=== PATIENT | female | born 1965 | race Caucasian/White ===

== ENCOUNTER 2016-08-22 18:38 | Emergency (ER) | payer MEDICAID ==
[2016-08-22] MEDS ORDERED: ONDANSETRON ODT 4 MG TABLET TL STA (20:47)
[2016-08-22] MEDS ORDERED: ONDANSETRON ODT 4 MG TABLET ONE (20:57)
[2016-08-22] MEDS ORDERED: CEPHALEXIN 250 MG CAPSULE PO STA (21:44)
[2016-08-22] MEDS ORDERED: ONDANSETRON ODT 4 MG Prepack 2 TL PRN (21:44)
[2016-08-22] MEDS ORDERED: FLUCONAZOLE 100 MG TABLET PO STA (21:44)
[2016-08-22] MEDS ORDERED: ONDANSETRON ODT 4 MG Prepack 2 TL ONE (22:01)
[2016-08-22] MEDS ORDERED: SULFAMETH/TRIMETH DS 800/160 MG TABLET PO STA (22:04)
[2016-08-22] MEDS ORDERED: SULFAMETH/TRIMETH DS 800/160 MG TABLET PO ONE (22:09)
== END 2016-08-22 22:10 | disposition home or self-care (01) ==
DX: B37.3 Candidiasis of vulva and vagina (principal); T50.905A Adverse effect of unspecified drugs, medicaments and biological substances, initial encounter; J06.9 Acute upper respiratory infection, unspecified; N39.0 Urinary tract infection, site not specified; S30.814A Abrasion of vagina and vulva, initial encounter; X58.XXXA Exposure to other specified factors, initial encounter; I10 Essential (primary) hypertension; E11.9 Type 2 diabetes mellitus without complications; Z79.84 Long term (current) use of oral hypoglycemic drugs; E03.9 Hypothyroidism, unspecified; K21.9 Gastro-esophageal reflux disease without esophagitis; M19.90 Unspecified osteoarthritis, unspecified site; F17.200 Nicotine dependence, unspecified, uncomplicated
CPT/HCPCS: 81001; 87210; 87491; 87529; 87591; 99283; A9270; Q0162

== ENCOUNTER 2016-10-14 03:00 | Emergency (ER) | payer MEDICAID ==
[2016-10-14] MEDS ORDERED: NEOMYCIN/POLYMYX/HC OTIC DROPS RIGHTEAR STA (03:56)
[2016-10-14] MEDS ORDERED: NEOMYCIN/POLYMYX/HC OTIC DROPS ONE (04:02)
[2016-10-14] MEDS ORDERED: SODIUM CHLORIDE 0.9% 1,000 ML IV ONE ×3 (04:09→06:50)
[2016-10-14 04:55] LABS: BILIRUBIN,URINE NEGATIVE (NEGATIVE)
[2016-10-14 04:56] LABS: UA CHARGE (STRIP ONLY) YES; UR CULTURE IF IND NOT INDICATED
[2016-10-14 04:57] LABS: BASOPHILS # (AUTO) 0.1 10^3/uL (0.0-0.1); BASOPHILS % (AUTO) 0.9 %; EOSINOPHILS # (AUTO) 0.1 10^3/uL (0.0-0.7); EOSINOPHILS % (AUTO) 0.9 %; HCT - HEMATOCRIT 47.6 % (37.0-47.0); HGB - HEMOGLOBIN 15.7 g/dL (12.0-16.0); LYMPHOCYTES # (AUTO) 1.7 10^3/uL (1.5-3.5); MEAN CORPUSCULAR HEMOGLOBIN 30.2 pg (27.0-31.0); MEAN CORPUSCULAR VOLUME 91.6 fL (81.0-99.0); MEAN PLATELET VOLUME 9.8 fL (7.9-10.8); MONOCYTES # (AUTO) 0.5 10^3/uL (0.0-1.0); MONOCYTES % (AUTO) 5.8 %; NEUTROPHILS # (AUTO) 6.6 10^3/uL (1.5-6.6); NEUTROPHILS % (AUTO) 73.4 %; NUCLEATED RED BLOOD CELLS AUTO 0.1 /100WBC; RED CELL DISTRIBUTION WIDTH 13.9 % (12.0-15.0)
--- NOTE | 2016-10-14 05:21 | ED Physician Documentation ---
PD HPI HEENT - Stated complaint Stated Complaint: RT EAR PAIN - Chief complaint Chief Complaint: Heent - History obtained from History obtained from: Patient - History of Present Illness Timing - onset: How many years ago (2) Timing - duration: Years (2) Timing - details: Still present, Waxing and waning Location: Right ear Improves: Medication Associated symptoms: Facial swelling, Headache Similar symptoms before: Diagnosis (otitis externa) Recently seen: Clinic (The patient has been treated with a cream to the ear) - Additional information Additional information: 51 y/o diabetic female has had some dry flaking skin to the external ear on the right for about 2 years. She has had an increase in symptoms in the past 2 weeks and now has severe pain after sticking her finger in her ear on mothers day and feeling that she broke the cartilage. The ear itched so bad she was very rough with it. She is complaining of the pain in the ear and the swelling and its extension to the soft tissues around the ear. Review of Systems Constitutional: reports: Fatigue. denies: Fever Eyes: denies: Decreased vision Ears: reports: Ear pain, Drainage/discharge Nose: reports: Congestion Throat: denies: Sore throat Cardiac: denies: Chest pain / pressure, Palpitations Respiratory: denies: Dyspnea, Cough GI: denies: Abdominal Pain, Nausea, Vomiting : reports: Frequency. 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 : None HEENT: None Psych: None Musculoskeletal: Osteoarthritis, Chronic back pain Derm: None - Past Surgical History Past Surgical History: Yes General: Cholecystectomy /JAVA DEVELOPER CONSULTANT: section - Present Medications Home Medications: Ambulatory Orders Medication Instructions Recorded Confirmed Glipizide [Glucotrol] 10 mg PO 02/06/13 07/17/14 Losartan [Cozaar] 25 mg PO ONCE 02/06/13 07/17/14 Metformin HCl [Metformin 500 gm PO BID 02/06/13 07/17/14 Hydrochloride] Metoclopramide [Reglan] 0 mg PO Q6H 02/06/13 07/17/14 Omeprazole [Prilosec] 0 mg PO 02/06/13 07/17/14 Oxybutynin [Ditropan] 0 mg PO BID 02/06/13 07/17/14 Albuterol [Ventolin Hfa] 2 puffs INH Q4H PRN #1 inhaler 03/08/14 07/17/14 Nystatin Cream [Mycostatin Cream] 1 applic TOP TID #15 g 01/18/16 Clotrimazole [Clotrimazole 3] 1 applic VG DAILY #21 g 08/22/16 Mupirocin 1 applic TP TID #15 oint...g. 08/22/16 Ondansetron Odt [Zofran] 4 mg TL Q6H PRN #15 tablet 08/22/16 Neomycin/Polymyx/Hc Otic Drops 4 drops RIGHTEAR TID #1 bottle 10/14/16 [Cortisporin Ear Susp] - Allergies Allergies/Adverse Reactions: Allergies Allergy/AdvReac Type Severity Reaction Status Date / Time fluconazole [From Diflucan] Allergy Intermediate Respiratory Verified 10/14/16 03:09 bupropion Allergy Rash Verified 10/14/16 03:09 Penicillins Allergy Respiratory Verified 10/14/16 03:09 codeine [Codeine] AdvReac Intermediate Rash Verified 10/14/16 03:09 morphine AdvReac Intermediate Rash Verified 10/14/16 03:09 buspirone [Buspirone] AdvReac Emesis Verified 10/14/16 03:09 cephalexin monohydrate * AdvReac Unknown Verified 10/14/16 03:09 [From Keflex] risperidone AdvReac Emesis Verified 10/14/16 03:09 - Social History Does the pt smoke?: Yes Smoking Status: Current every day smoker Does the pt drink ETOH?: Yes Does the pt have substance abuse?: Yes - Immunizations Immunizations are current?: Yes - POLST Patient has POLST: No PD ED PE NORMAL - Vitals Vital signs reviewed: Yes (hypertensive ) - General General: Alert and oriented X 3, Well developed/nourished, Other (The patient appears to be in pain and is clutching the side of her head. ) - HEENT HEENT: Atraumatic, PERRL, EOMI, Other (The left TM is inflammed and the right is not visible secondary to swelling in the canal that is very tender and the skin overlying the ear and the canal is lichenified and flaking. The mucous membranes are dry. ) - Neck Neck: Supple, no meningeal sign, No bony TTP - Cardiac Cardiac: RRR, No murmur - Respiratory Respiratory: No respiratory distress, Clear bilaterally - Abdomen Abdomen: Soft, Non tender - Back Back: No CVA TTP, No spinal TTP - Derm Derm: Normal color, No rash - Extremities Extremities: No deformity, No edema - Neuro Neuro: No motor deficit, No sensory deficit - Psych Psych: Normal mood, Normal affect Results - Vitals Vitals: Vital Signs - 24 hr 10/14/16 10/14/16 10/14/16 03:12 05:38 06:45 Temperature 35.9 C L Heart Rate 88 95 78 Respiratory 16 16 16 Rate Blood Pressure 128/87 H 155/89 H 133/90 H O2 Saturation 97 96 100 Oxygen O2 Source Room air - Labs Labs: Laboratory Tests 10/14/16 10/14/16 10/14/16 04:20 04:20 04:20 WBC 9.0 RBC 5.20 Hgb 15.7 Hct 47.6 H MCV 91.6 MCH 30.2 MCHC 33.0 RDW 13.9 Plt Count 187 MPV 9.8 Neut # 6.6 Lymph # 1.7 Bryan # 0.5 Eos # 0.1 Baso # 0.1 Absolute Nucleated RBC 0.01 Nucleated RBCs 0.1 Sodium 134 L Potassium 4.8 Chloride 94 L Carbon Dioxide 30 Anion Gap 10.0 BUN 10 Creatinine 0.8 Estimated GFR (MDRD) 76 L Glucose 497 H Glycated Hemoglobin 12.1 H Estim Average Glucose 301 H Calcium 9.1 Total Bilirubin 0.8 AST 16 ALT 14 Alkaline Phosphatase 99 Total Protein 6.8 Albumin 3.8 Globulin 3.0 Albumin/Globulin Ratio 1.3 Lipase 16 L Urine Color Urine Clarity Urine pH Ur Specific [place] Urine Protein Urine Glucose (UA) Urine Ketones Urine Occult Blood Urine Nitrite Urine Bilirubin Urine Urobilinogen Ur Leukocyte Esterase Ur Microscopic Review Urine Culture Comments 10/14/16 04:20 WBC RBC Hgb Hct MCV MCH MCHC RDW Plt Count MPV Neut # Lymph # Bryan # Eos # Baso # Absolute Nucleated RBC Nucleated RBCs Sodium Potassium Chloride Carbon Dioxide Anion Gap BUN Creatinine Estimated GFR (MDRD) Glucose Glycated Hemoglobin Estim Average Glucose Calcium Total Bilirubin AST ALT Alkaline Phosphatase Total Protein Albumin Globulin Albumin/Globulin Ratio Lipase Urine Color YELLOW Urine Clarity CLEAR Urine pH 6.0 Ur Specific [place] <=1.005 Urine Protein NEGATIVE Urine Glucose (UA) >=1000 H Urine Ketones NEGATIVE Urine Occult Blood TRACE-INTA Urine Nitrite NEGATIVE Urine Bilirubin NEGATIVE Urine Urobilinogen 0.2 (NORMAL) Ur Leukocyte Esterase NEGATIVE Ur Microscopic Review NOT INDICATED Urine Culture Comments NOT INDICATED PD MEDICAL DECISION MAKING - ED course Complexity details: reviewed old records, reviewed results, re-evaluated patient , considered differential, d/w patient, d/w family ED course: 51 y/o diabetic female with right otitis externa has diabetes out of control with a random glucose of 485. An IV is established and she is given IV saline. A [facility] ear wick is used to instill cortisporin otic. Her sugar improves with fluids alone but not enough and a second liter is hung and she is given IV insulin. Her A1c is 12.1 with an average of 301 glucose. We established a small bore IV and administered 1500ml of saline and 10 units of insulin IV. She did not want to stay for extended treatment and we were only able to get the sugar down to 286. 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 The external ear canal infection is a diabetic problem and control of your diabetes will help resolve this. Talk to your doctor about more stringent control. Use the cortisporin solution 4 times per day and remove the wick tomorrow night.
[2016-10-14 05:25] LABS: ALBUMIN/GLOBULIN RATIO 1.3 (1.0-2.2); BILIRUBIN,TOTAL 0.8 mg/dL (0.2-1.0); CALCIUM 9.1 mg/dL (8.5-10.3); CREATININE 0.8 mg/dL (0.4-1.0); POTASSIUM 4.8 mmol/L (3.5-5.0); TOTAL PROTEIN 6.8 g/dL (6.7-8.2)
[2016-10-14 05:44] LABS: HEMOGLOBIN A1C 1.82 g/dL
[2016-10-14] MEDS ORDERED: INSULIN REGULAR HUMAN 100 UNIT/1 ML 10 ML MDV ONE (06:44)
[2016-10-14 06:50] VITALS: BP 133/90
[2016-10-14] MEDS ORDERED: INSULIN REGULAR HUMAN 100 UNIT/1 ML 10 ML MDV IVP STA (06:50)
== END 2016-10-14 07:42 | disposition home or self-care (01) ==
LOC: ED 03:00
DX: H60.311 Diffuse otitis externa, right ear (principal); E11.69 Type 2 diabetes mellitus with other specified complication; I10 Essential (primary) hypertension; E03.9 Hypothyroidism, unspecified; K21.9 Gastro-esophageal reflux disease without esophagitis; M19.90 Unspecified osteoarthritis, unspecified site; F17.200 Nicotine dependence, unspecified, uncomplicated; Z79.84 Long term (current) use of oral hypoglycemic drugs
CPT/HCPCS: 36415; 80053; 81003; 83036; 83690; 85025; 96360; 96361; 99284; A9270; J1815; 81001; 87086

== ENCOUNTER 2016-10-28 06:20 | Outpatient (CLI) | payer MEDICAID | END 2016-10-28 06:21 | disposition critical access hospital (66) | LOC: EMS 06:20 | PROVIDERS: ATTEND Surgery | DX: M25.511 Pain in right shoulder (principal) | CPT/HCPCS: A0425; A0429 ==

== ENCOUNTER 2016-10-28 06:38 | Emergency (ER) | payer MEDICAID ==
[2016-10-28 06:47] VITALS: BP 157/81
[2016-10-28] MEDS ORDERED: CYCLOBENZAPRINE 10 MG TABLET PO STA (07:32)
[2016-10-28] MEDS ORDERED: DEXAMETHASONE 10 MG/ML VIAL PO STA (07:32)
[2016-10-28] MEDS ORDERED: LIDOCAINE PATCH 5% TOP STA (07:32)
--- NOTE | 2016-10-28 07:35 | ED Physician Documentation ---
History of Present Illness - Stated complaint Stated Complaint: R ARM PAIN - Chief complaint Chief Complaint: General - Additonal information Additional information: hx from pt 51 female to ER 2 cc 1) R scapular region pain with radiation down arm to radial hand, worse with movement of shoulder elbow and thumb, no specific injury recalled per pt when I spoke with her but per NN was moving boxes and per teradata solution architect notes she told them she fell, when asked what she has tried for the pain so far she replies "adrenaline" 2) dropped a knife on R great toe several days ago denies preg Review of Systems Constitutional: denies: Fever Cardiac: denies: Chest pain / pressure GI: denies: Abdominal Pain : denies: Now EGA Skin: reports: Laceration (s) Musculoskeletal: reports: Extremity pain Immunocompromised: denies: Immunocompromised PD PAST MEDICAL HISTORY - Past Medical History Past Medical History: Yes Cardiovascular: Hypertension Respiratory: None Neuro: None Endocrine/Autoimmune: Type 2 diabetes, HyPOthyroidism GI: GERD 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 : None HEENT: None Psych: None Musculoskeletal: Osteoarthritis, Chronic back pain Derm: None - Past Surgical History Past Surgical History: Yes General: Cholecystectomy /AIRSET CASTER: section - Present Medications Home Medications: Ambulatory Orders Medication Instructions Recorded Confirmed Glipizide [Glucotrol] 10 mg PO 02/06/13 07/17/14 Losartan [Cozaar] 25 mg PO ONCE 02/06/13 07/17/14 Metformin HCl [Metformin 500 gm PO BID 02/06/13 07/17/14 Hydrochloride] Metoclopramide [Reglan] 0 mg PO Q6H 02/06/13 07/17/14 Omeprazole [Prilosec] 0 mg PO 02/06/13 07/17/14 Oxybutynin [Ditropan] 0 mg PO BID 02/06/13 07/17/14 Albuterol [Ventolin Hfa] 2 puffs INH Q4H PRN #1 inhaler 03/08/14 07/17/14 Nystatin Cream [Mycostatin Cream] 1 applic TOP TID #15 g 01/18/16 Clotrimazole [Clotrimazole 3] 1 applic VG DAILY #21 g 08/22/16 Mupirocin 1 applic TP TID #15 oint...g. 08/22/16 Ondansetron Odt [Zofran] 4 mg TL Q6H PRN #15 tablet 08/22/16 Neomycin/Polymyx/Hc Otic Drops 4 drops RIGHTEAR TID #1 bottle 10/14/16 [Cortisporin Ear Susp] Cyclobenzaprine [Flexeril] 10 mg PO TID PRN #20 tablet 10/28/16 Ibuprofen [Motrin] 400 mg PO Q6H PRN #20 tablet 10/28/16 Lidocaine Patch 5% [Lidoderm Patch] 1 each TOP DAILY PRN #10 patch 10/28/16 - Allergies Allergies/Adverse Reactions: Allergies Allergy/AdvReac Type Severity Reaction Status Date / Time fluconazole [From Diflucan] Allergy Intermediate Respiratory Verified 10/28/16 06:47 bupropion Allergy Rash Verified 10/28/16 06:47 Penicillins Allergy Respiratory Verified 10/28/16 06:47 codeine [Codeine] AdvReac Intermediate Rash Verified 10/28/16 06:47 morphine AdvReac Intermediate Rash Verified 10/28/16 06:47 buspirone [Buspirone] AdvReac Emesis Verified 10/28/16 06:47 cephalexin monohydrate * AdvReac Unknown Verified 10/28/16 06:47 [From Keflex] risperidone AdvReac Emesis Verified 10/28/16 06:47 - Social History Does the pt smoke?: Yes Smoking Status: Current every day smoker Does the pt drink ETOH?: Yes Does the pt have substance abuse?: Yes - Immunizations Immunizations are current?: Yes - POLST Patient has POLST: No PD ED PE NORMAL - Vitals Vital signs reviewed: Yes - Neck Neck: No bony TTP (and no redness or swelling) - Cardiac Cardiac: RRR - Respiratory Respiratory: No respiratory distress, Clear bilaterally - Abdomen Abdomen: Soft, Non tender - Extremities Extremities: Other (TP trap rtegion right poisterior shoulder s erythema swelling, MSV intact (see neuro exam) right great toe and both feet caked in dirt, dirtya bandaid removed, there is a small lac to distal dorsal great toe just medial to nail without erythema swelling dehisc dc or streaking) - Neuro Neuro: No motor deficit (limited by pain but shoulder ABD bicep tripcep wrist ext, finger ABD, thumbs up, OK sign and chip applying machine tender intact, + cap refill), No sensory deficit Results - Vitals Vitals: Vital Signs - 24 hr 10/28/16 06:43 Temperature 36.3 C L Heart Rate 95 Respiratory 19 Rate Blood Pressure 157/81 H O2 Saturation 98 Oxygen O2 Source Room air - Rads (name of study) shoulder Radiology: See rad report (mod AC osteoarthropathy) Departure - Departure Disposition: 01 Home, Self Care Clinical Impression: Radicular pain in right arm, Upper back pain on right side Laceration of toe Qualifiers: Encounter type: initial encounter Toe: great toe Damage to nail status: without damage Foreign body presence: without foreign body Laterality: right Qualified Code(s): S91.111A - Laceration without foreign body of right great toe without damage to nail, initial encounter Condition: Good Instructions: ED Laceration Old Not Sutr, ED Cervical Radiculopathy, ED Spasm Muscle Follow-Up: Grady Dillon MD [Primary Care Provider] - Prescriptions: Cyclobenzaprine [Flexeril] 10 mg PO TID PRN #20 tablet PRN Reason: Spasms Lidocaine Patch 5% [Lidoderm Patch] 1 each TOP DAILY PRN #10 patch PRN Reason: Pain Ibuprofen [Motrin] 400 mg PO Q6H PRN #20 tablet PRN Reason: Pain Comments: Right now your toe does not seem to be infected. But given that you have diabetes, you need to pay careful attention to this wound. Please wash it with soap and water and apply antibiotic ointment and a new bandaid twice a day - wear socks and closed shoe to keep the wound from getting dirty. If it becomes very painful red swollen, there is streaking or discharge, or you have a fever please see your PMD or come back to the ER The shoulder xray did not shopw any fracture or dislocation. The pain in you shoulder seem to be muscular with spasm and a component of radiculopathy ( pinched nerve). The steroids we gave you in the ER will help the nerve pain - but will also increase your blood sugar for the next three days so please monitor your sugars and diet carefully. You can also use the lidocaine patches - one patch for up to 12 hr per day - and the muscle relaxant (no driving) as needed. You can wear the sling for comfort but you still need to do some gentle range of motion with your shoulder every day to prevents adhesions and freezing of the joint. Please follow up with your PMD for a recheck and perhaps a referral to physical therapy. And please follow up with your PMD about your blood pressure - it was high today Forms: Activity restrictions
[2016-10-28] MEDS ORDERED: LIDOCAINE PATCH 5% TOP ONE (07:36)
[2016-10-28] MEDS ORDERED: CHERRY SYRUP 10 ML UDC PO ONE (07:36)
[2016-10-28] MEDS ORDERED: CYCLOBENZAPRINE 10 MG TABLET PO ONE (07:36)
[2016-10-28] MEDS ORDERED: DEXAMETHASONE 10 MG/ML VIAL ONE (07:36)
[2016-10-28] MEDS ORDERED: TETANUS/DIPHTHERIA/PERTUSSIS 0.5 ML SYRINGE IM ONE ×2 (07:46→07:50)
--- NOTE | 2016-10-28 08:34 | XRAY Preliminary Report ---
Exam: XR Shoulder 3 View RT IMPRESSION: Moderate acromioclavicular osteoarthropathy. [facility] SITE ID: [id number]
--- NOTE | 2016-10-28 08:36 | XRAY Report ---
EXAM: RIGHT SHOULDER RADIOGRAPHY EXAM DATE: 10/28/2016 08:14 AM. CLINICAL HISTORY: Posterior shoulder pain COMPARISON: 09/25/2011. TECHNIQUE: 3 views. FINDINGS: Bones: Normal. No fracture or bone lesion. The acromion is type II. Joints: The acromioclavicular joint demonstrates moderate hypertrophy and periarticular cyst formatio n. Soft tissues: The visualized hemithorax is unremarkable. No soft tissue swelling. IMPRESSION: Moderate acromioclavicular osteoarthropathy. [facility] Referring Provider Line: [phone] SITE ID: [id number]
[2016-10-28] MEDS ORDERED: VANCOMYCIN 1 GM VIAL ONE (09:01)
[2016-10-28] MEDS ORDERED: WATER FOR INJECTION,STERILE 10 ML ONE (09:01)
[2016-10-28] MEDS ORDERED: HYDROmorphone 1 MG/ML SYRINGE ONE (09:01)
== END 2016-10-28 09:05 | disposition home or self-care (01) ==
LOC: EDUNIT# → EDBD → ED 06:38
DX: S91.111A Laceration without foreign body of right great toe without damage to nail, initial encounter (principal); W26.0XXA Contact with knife, initial encounter; M54.6 Pain in thoracic spine; M54.12 Radiculopathy, cervical region; Z23 Encounter for immunization; I10 Essential (primary) hypertension; E11.9 Type 2 diabetes mellitus without complications; Z79.84 Long term (current) use of oral hypoglycemic drugs; E03.9 Hypothyroidism, unspecified; K21.9 Gastro-esophageal reflux disease without esophagitis; M19.90 Unspecified osteoarthritis, unspecified site; F17.200 Nicotine dependence, unspecified, uncomplicated
CPT/HCPCS: 73030; 90471; 90715; 99283; A9270; J1170; J3370

== ENCOUNTER 2016-12-07 03:51 | Emergency (ER) | payer MEDICAID ==
--- NOTE | 2016-12-07 04:01 | ED Physician Documentation ---
PD HPI OPHTHO - Stated complaint Stated Complaint: JACOB EYE ITCHING,PAIN - History obtained from History obtained from: Patient - History of Present Illness Timing - onset: How many days ago (1-2) Timing - duration: Days (1-2 days of bilateral eye itching and discharge. Feeling itchy around eyes and eyebrows as well. Having some itchiness) Timing - details: Gradual onset (over few days), Still present Location: Both Quality / character: Itching, Burning Associated symptoms: Redness, Discharge, Matting, FB sensation (she thought she saw small white objects moving on eyelids and concerned about "bugs".) Contributing factors: No: Exposed to conjunctivitis, Recent URI, FB, Wears contacts Similar symptoms before: Has not had sx before Recently seen: Not recently seen Review of Systems Constitutional: denies: Fever, Chills Nose: reports: Congestion, Other (general itching on face and around eyes for few days to a week.) Cardiac: denies: Chest pain / pressure Respiratory: denies: Dyspnea, Cough GI: denies: Nausea, Vomiting, Diarrhea : denies: Dysuria, Frequency, Discharge (but has feeling of itching in external genitalia and pubis area, concerned about "crabs".) Skin: denies: Rash, Lesions PD PAST MEDICAL HISTORY - Past Medical History Cardiovascular: Hypertension Respiratory: None Neuro: None Endocrine/Autoimmune: Type 2 diabetes, HyPOthyroidism GI: GERD 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 : None HEENT: None Psych: None Musculoskeletal: Osteoarthritis, Chronic back pain Derm: None - Past Surgical History Past Surgical History: Yes General: Cholecystectomy /TIMBER SUPERVISOR: section - Present Medications Home Medications: Ambulatory Orders Medication Instructions Recorded Confirmed Glipizide [Glucotrol] 10 mg PO 02/06/13 07/17/14 Losartan [Cozaar] 25 mg PO ONCE 02/06/13 07/17/14 Metformin HCl [Metformin 500 gm PO BID 02/06/13 07/17/14 Hydrochloride] Metoclopramide [Reglan] 0 mg PO Q6H 02/06/13 07/17/14 Omeprazole [Prilosec] 0 mg PO 02/06/13 07/17/14 Oxybutynin [Ditropan] 0 mg PO BID 02/06/13 07/17/14 Albuterol [Ventolin Hfa] 2 puffs INH Q4H PRN #1 inhaler 03/08/14 07/17/14 Nystatin Cream [Mycostatin Cream] 1 applic TOP TID #15 g 01/18/16 Mupirocin 1 applic TP TID #15 oint...g. 08/22/16 Ondansetron Odt [Zofran] 4 mg TL Q6H PRN #15 tablet 08/22/16 Neomycin/Polymyx/Hc Otic Drops 4 drops RIGHTEAR TID #1 bottle 10/14/16 [Cortisporin Ear Susp] Cyclobenzaprine [Flexeril] 10 mg PO TID PRN #20 tablet 10/28/16 Ibuprofen [Motrin] 400 mg PO Q6H PRN #20 tablet 10/28/16 Lidocaine Patch 5% [Lidoderm Patch] 1 each TOP DAILY PRN #10 patch 10/28/16 Cetirizine [ZyrTEC] 10 mg PO DAILY #20 tablet 12/07/16 Clotrimazole [Clotrimazole 3] 1 applic VG DAILY #21 g 12/07/16 Dexamethasone [Decadron] 4 mg PO DAILY #5 tablet 12/07/16 - Allergies Allergies/Adverse Reactions: Allergies Allergy/AdvReac Type Severity Reaction Status Date / Time fluconazole [From Diflucan] Allergy Intermediate Respiratory Verified 10/28/16 06:47 bupropion Allergy Rash Verified 10/28/16 06:47 Penicillins Allergy Respiratory Verified 10/28/16 06:47 codeine [Codeine] AdvReac Intermediate Rash Verified 10/28/16 06:47 morphine AdvReac Intermediate Rash Verified 10/28/16 06:47 buspirone [Buspirone] AdvReac Emesis Verified 10/28/16 06:47 cephalexin monohydrate * AdvReac Unknown Verified 10/28/16 06:47 [From Keflex] risperidone AdvReac Emesis Verified 10/28/16 06:47 - Social History Does the pt smoke?: Yes Smoking Status: Current every day smoker Does the pt drink ETOH?: Yes Does the pt have substance abuse?: Yes - Immunizations Immunizations are current?: Yes - POLST Patient has POLST: No PD ED PE NORMAL - Vitals Vital signs reviewed: Yes - General General: Alert and oriented X 3, No acute distress, Well developed/nourished - HEENT HEENT: Ears normal, Pharynx benign, Other (both eyes with crusting and hyperemia , some conjunctival redness, c/w conjunctivitis. Scalp without nits nor lice seem. No bites/red russo seen on face nor neck. ) - Neck Neck: Supple, no meningeal sign, No adenopathy - Cardiac Cardiac: RRR, No murmur - Respiratory Respiratory: Clear bilaterally - Female Female : Rehabilitation Psychologist present (nurse Aydee), Other (No signs of genital crabs, sores, infection of skin. There is mild white discharge in labial folds c/w some yeast. Speculum exam not done. ) - Back Back: No CVA TTP - Derm Derm: Normal color, Warm and dry, No rash Results - Vitals Vitals: Vital Signs - 24 hr 12/07/16 03:59 Temperature 36.4 C L Heart Rate 97 Respiratory 16 Rate Blood Pressure 129/99 H O2 Saturation 100 Oxygen O2 Source Room air PD MEDICAL DECISION MAKING - ED course Complexity details: considered differential (looks like conjunctivitis of eyes. She has had itching prior, so consider underlying allergies. She is concerned about "bugs" on face and in external genitalia. I do not see signs of scabies/ lice on face/scalp, and genital exam does not show signs of louse/crabs. Some external labial fold yeast appearance. ), d/w patient Departure - Departure Disposition: 01 Home, Self Care Clinical Impression: Itching with irritation, Yeast vaginitis Conjunctivitis Qualifiers: Conjunctivitis type: acute Acute conjunctivitis type: bacterial Laterality: bilateral Qualified Code(s): H10.33 - Unspecified acute conjunctivitis, bilateral Condition: Stable Record reviewed to determine appropriate education?: Yes Instructions: ED Conjunctivitis Bacterial Prescriptions: Clotrimazole [Clotrimazole 3] 1 applic VG DAILY #21 g Dexamethasone [Decadron] 4 mg PO DAILY #5 tablet Cetirizine [ZyrTEC] 10 mg PO DAILY #20 tablet Comments: Use the eye drops (anti-inflammatory and antibiotic together) 4 times daily for the next 3-4 days for apparent conjunctivitis. Cetirizine daily for itchiness. Decadron daily for 5 days to help with allergies/itchiness. Clotrimazole cream for 3 days for possible labial yeast infection. Recheck if not improved over the next couple of days. Discharge Date/Time: 12/07/16 04:48
[2016-12-07 04:02] VITALS: BP 129/99
[2016-12-07] MEDS ORDERED: diphenhydrAMINE 25 MG CAPSULE PO STA (04:16)
[2016-12-07] MEDS ORDERED: TOBRAMYCIN 0.3% OPHTH DROPS 5 ML EACHEYE STA (04:16)
[2016-12-07] MEDS ORDERED: CETIRIZINE 10 MG TABLET PO STA (04:16)
[2016-12-07] MEDS ORDERED: DEXAMETHASONE 10 MG/ML VIAL PO STA (04:16)
[2016-12-07] MEDS ORDERED: diphenhydrAMINE 25 MG CAPSULE PO ONE (04:36)
[2016-12-07] MEDS ORDERED: CETIRIZINE 10 MG TABLET ONE (04:36)
[2016-12-07] MEDS ORDERED: TOBRAM/DEXAMETH OPHTH DROPS 2.5 ML ONE (04:37)
[2016-12-07] MEDS ORDERED: DEXAMETHASONE 10 MG/ML VIAL ONE (04:37)
== END 2016-12-07 04:48 | disposition home or self-care (01) ==
LOC: ED 03:51
DX: H10.33 Unspecified acute conjunctivitis, bilateral (principal); B37.3 Candidiasis of vulva and vagina; I10 Essential (primary) hypertension; E11.8 Type 2 diabetes mellitus with unspecified complications; Z79.84 Long term (current) use of oral hypoglycemic drugs
CPT/HCPCS: 99283; A9270

== ENCOUNTER 2016-12-22 20:34 | Outpatient (CLI) | payer MEDICAID | END 2016-12-22 20:35 | disposition EMS.NT | LOC: EMS 20:34 | PROVIDERS: ATTEND Surgery | DX: M79.632 Pain in left forearm (principal); Y04.8XXA Assault by other bodily force, initial encounter ==

== ENCOUNTER 2017-02-19 16:43 | Emergency (ER) | payer MEDICAID ==
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
[2017-02-19 18:47] LABS: BASOPHILS # (AUTO) 0.1 10^3/uL (0.0-0.1); BASOPHILS % (AUTO) 1.2 %; EOSINOPHILS # (AUTO) 0.2 10^3/uL (0.0-0.7); EOSINOPHILS % (AUTO) 1.8 %; HCT - HEMATOCRIT 46.5 % (37.0-47.0); HGB - HEMOGLOBIN 15.5 g/dL (12.0-16.0); LYMPHOCYTES # (AUTO) 2.4 10^3/uL (1.5-3.5); LYMPHOCYTES % (AUTO) 22.1 %; MEAN CORPUSCULAR HGB CONC 33.3 g/dL (32.0-36.0); MEAN CORPUSCULAR VOLUME 92.9 fL (81.0-99.0); MEAN PLATELET VOLUME 8.4 fL (7.9-10.8); MONOCYTES # (AUTO) 0.6 10^3/uL (0.0-1.0); MONOCYTES % (AUTO) 5.8 %; NEUTROPHILS # (AUTO) 7.5 10^3/uL (1.5-6.6); NEUTROPHILS % (AUTO) 69.1 %; RED CELL DISTRIBUTION WIDTH 13.3 % (12.0-15.0); UNCORRECTED WHITE BLOOD COUNT 10.9 x10^3/uL; WHITE BLOOD COUNT 10.9 x10^3/uL (4.8-10.8)
[2017-02-19 19:03] LABS: HCG UR QUAL NEGATIVE; PH,URINE 5.5 PH (5.0-7.5); UA w/ MICROSCOPIC CHARGE YES
[2017-02-19 19:04] LABS: BILIRUBIN,URINE NEGATIVE (NEGATIVE)
[2017-02-19 19:07] LABS: ALBUMIN/GLOBULIN RATIO 1.3 (1.0-2.2); BILIRUBIN,TOTAL 0.6 mg/dL (0.2-1.0); BUN - BLOOD UREA NITROGEN 14 mg/dL (6-20); CARBON DIOXIDE - CO2 24 mmol/L (21-32); CHLORIDE 99 mmol/L (101-111); CREATININE 0.6 mg/dL (0.4-1.0); GFR - MDRD 106 (>89); GLUCOSE 336 mg/dL (70-100); LIPASE 24 U/L (22-51); POTASSIUM 4.1 mmol/L (3.5-5.0); SALICYLATE < 6.0 mg/dL; SODIUM 133 mmol/L (135-145); TOTAL PROTEIN 6.9 g/dL (6.7-8.2)
[2017-02-19 19:10] LABS: ACETAMINOPHEN < 10 ug/mL (10-30)
[2017-02-19 19:20] LABS: UR CULTURE IF IND NOT INDICATED
[2017-02-19 19:37] VITALS: BP 130/84
[2017-02-19] MEDS ORDERED: NICOTINE 14 MG PATCH TOP STA (22:38)
== END 2017-02-20 00:35 | disposition left against medical advice (07) ==
LOC: ED 16:43 → EEVIPCON 16:43 → ED 02-20 00:35
DX: F22 Delusional disorders (principal); F15.10 Other stimulant abuse, uncomplicated; F29 Unspecified psychosis not due to a substance or known physiological condition; E11.9 Type 2 diabetes mellitus without complications; I10 Essential (primary) hypertension
CPT/HCPCS: 36415; 80053; 80306; 80307; 80320; 80329; 81001; 81003; 81025; 83690; 85025; 87086; 99282; 99284

== ENCOUNTER 2017-03-05 22:37 | Outpatient (CLI) | payer MEDICAID | END 2017-03-05 22:38 | disposition EMS.NT | LOC: EMS 22:37 | PROVIDERS: ATTEND Surgery | DX: H57.9 Unspecified disorder of eye and adnexa (principal) ==

== ENCOUNTER 2017-07-01 08:00 | Outpatient (CLI) | payer MEDICAID | END 2017-07-01 23:59 | disposition home or self-care (01) | LOC: LAB.R 08:00 | PROVIDERS: ATTEND Nurse Practitioner Family | DX: L03.90 Cellulitis, unspecified (principal) | CPT/HCPCS: 87070; 87205 ==

== ENCOUNTER 2017-09-09 08:00 | Outpatient (CLI) | payer MEDICAID ==
[2017-09-10 11:39] LABS: BASOPHILS # (AUTO) 0.1 10^3/uL (0.0-0.1); EOSINOPHILS # (AUTO) 0.3 10^3/uL (0.0-0.7); EOSINOPHILS % (AUTO) 4.2 %; HGB - HEMOGLOBIN 12.9 g/dL (12.0-16.0); LYMPHOCYTES # (AUTO) 2.6 10^3/uL (1.5-3.5); LYMPHOCYTES % (AUTO) 39.1 %; MEAN CORPUSCULAR HEMOGLOBIN 31.2 pg (27.0-31.0); MEAN CORPUSCULAR HGB CONC 33.4 g/dL (32.0-36.0); MEAN CORPUSCULAR VOLUME 93.5 fL (81.0-99.0); MEAN PLATELET VOLUME 8.7 fL (7.9-10.8); MONOCYTES # (AUTO) 0.4 10^3/uL (0.0-1.0); MONOCYTES % (AUTO) 5.6 %; NEUTROPHILS # (AUTO) 3.3 10^3/uL (1.5-6.6); NEUTROPHILS % (AUTO) 50.1 %; PLT - PLATELET COUNT 234 10^3/uL (130-450); RED BLOOD COUNT 4.14 10^6/uL (4.20-5.40); RED CELL DISTRIBUTION WIDTH 14.7 % (12.0-15.0); WHITE BLOOD COUNT 6.7 x10^3/uL (4.8-10.8)
[2017-09-10 11:43] LABS: ALBUMIN/GLOBULIN RATIO 1.4 (1.0-2.2); BILIRUBIN,TOTAL 0.2 mg/dL (0.2-1.0); CREATININE 0.5 mg/dL (0.4-1.0); TOTAL PROTEIN 6.8 g/dL (6.7-8.2)
[2017-09-10 15:29] LABS: HEMOGLOBIN A1C 0.68 g/dL; HEMOGLOBIN A1C % 6.6 % (4.6-6.2)
[2017-09-11 13:59] LABS: HEPATITIS C ANTIBODY NON-REACTIVE (NON-REACTIVE)
[2017-09-11 16:41] LABS: HIV AG/AB 4TH GEN NON-REACTIVE (NON-REACTIVE)
[2017-09-12 12:40] LABS: HSV 1 IGG TYPE SPECIFIC AB 1.15 index; HSV 2 IGG TYPE SPECIFIC AB >23.00 index
== END 2017-09-09 08:01 | disposition home or self-care (01) ==
LOC: LAB.F 08:00
PROVIDERS: ATTEND Nurse Practitioner Family
DX: Z11.3 Encounter for screening for infections with a predominantly sexual mode of transmission (principal); E11.9 Type 2 diabetes mellitus without complications
CPT/HCPCS: 36415; 80053; 81599; 82043; 83036; 85025; 86695; 86696; 86803; 87389; 87491; 87591

== ENCOUNTER 2017-11-03 15:58 | Outpatient (CLI) | payer MEDICAID ==
--- NOTE | 2017-11-04 12:44 | XRAY Report ---
LEFT WRIST, THREE VIEWS: 11/03/2017 HISTORY: Pain. FINDINGS: Three views of the left wrist interpreted without comparisons. No fracture, malalignment, joint space narrowing or other abnormality. IMPRESSION: NEGATIVE THREE VIEW LEFT WRIST. A SOURCE FOR PAIN IS NOT IDENTIFIED. TD: 11/04/2017 12:29
== END 2017-11-03 15:59 | disposition home or self-care (01) ==
LOC: DI.S 15:58
PROVIDERS: ATTEND Nurse Practitioner Family
DX: M25.532 Pain in left wrist (principal)

== ENCOUNTER 2017-11-11 15:11 | Outpatient (CLI) | payer MEDICAID ==
--- NOTE | 2017-11-11 15:49 | XRAY Report ---
Procedure Date: 11/11/2017 Accession Number: [id number] / [id number] Procedure: XRS - Cervical Spine 2 View CPT Code: FULL RESULT: EXAM: Cervical Spine 2 View DATE: 11/11/2017 3:29 PM CLINICAL HISTORY: NECK PAIN, CHRONIC COMPARISON: 09/25/2011 TECHNIQUE: 3 views cervical spine FINDINGS: Moderate degenerative disc and facet disease is again seen. There is no evidence of fracture or subluxation. The prevertebral soft tissues are unremarkable. IMPRESSION: Stable degenerative changes. No evidence of acute fracture.
== END 2017-11-11 15:12 | disposition home or self-care (01) ==
LOC: DI.S 15:11
PROVIDERS: ATTEND Nurse Practitioner Family
DX: M50.30 Other cervical disc degeneration, unspecified cervical region (principal); M47.892 Other spondylosis, cervical region
CPT/HCPCS: 72040

== ENCOUNTER 2018-02-15 08:00 | Outpatient (CLI) | payer MEDICAID ==
[2018-02-16 11:02] LABS: BILIRUBIN,URINE NEGATIVE (NEGATIVE); GLUCOSE, URINE (UA) 500 mg/dL (NEGATIVE); KETONES,URINE (UA) NEGATIVE (NEGATIVE); LEUKOCYTE ESTERASE, URINE NEGATIVE (NEGATIVE); NITRITE,URINE POSITIVE (NEGATIVE); OCCULT BLOOD,URINE NEGATIVE (NEGATIVE); PH,URINE 5.5 PH (5.0-7.5); PROTEIN,URINE NEGATIVE (NEGATIVE); UROBILINOGEN,URINE 0.2 (NORMAL) E.U./dL (NORMAL)
[2018-02-16 11:07] LABS: CLARITY,URINE CLOUDY (CLEAR)
[2018-02-16 11:34] LABS: BACTERIA,URINE Many /HPF (None Seen); RBC,URINE 0-5 /HPF (0-5); SQUAMOUS EPITHELIAL CELL,UR MOD Squamous (<= Few)
[2018-02-16 11:35] LABS: AMORPHOUS SEDIMENT,UR Marked /LPF
== END 2018-02-15 23:59 ==
LOC: LAB.R 08:00
PROVIDERS: ATTEND Nurse Practitioner Family
DX: N76.0 Acute vaginitis (principal)
CPT/HCPCS: 81001; 87086

== ENCOUNTER 2018-04-09 10:10 | Outpatient (CLI) | payer MEDICAID ==
[2018-04-09 18:44] LABS: THYROID STIMULATING HORMONE 1.18 uIU/mL (0.34-5.60)
[2018-04-09 18:52] LABS: FREE T4 (FREE THYROXINE) < 0.25 ng/dL (0.58-1.64)
== END 2018-04-09 10:11 | disposition home or self-care (01) ==
LOC: LAB.F 10:10
PROVIDERS: ATTEND Nurse Practitioner Family
DX: E03.9 Hypothyroidism, unspecified (principal)
CPT/HCPCS: 36415; 84439; 84443

== ENCOUNTER → 2018-04-30 | Outpatient (CLI) | payer MEDICAID | LOC: LAB.R 18:20 | PROVIDERS: ATTEND Nurse Practitioner | DX: L02.214 Cutaneous abscess of groin (principal) | CPT/HCPCS: 87075; 87076; 87185; 87205 ==

== ENCOUNTER 2018-06-17 20:12 | Emergency (ER) | payer MEDICAID ==
[2018-06-17] MEDS ORDERED: LOPERAMIDE 2 MG CAPSULE PO STA ×2 (20:33→21:56)
[2018-06-17] MEDS ORDERED: SODIUM CHLORIDE 0.9% 1,000 ML IV ONE (20:33)
[2018-06-17] MEDS ORDERED: CIPROFLOXACIN 250 MG TABLET PO STA (20:33)
--- NOTE | 2018-06-17 20:44 | ED Physician Documentation ---
PD HPI NVD - Stated complaint Stated Complaint: EXPLOSIVE DIARRHEA - Chief complaint Chief Complaint: Abd Pain - History obtained from History obtained from: Patient - History of Present Illness Timing - onset: How many hours ago (8) Timing - duration: Hours (8) Timing - details: Gradual onset Pain level max: 3 Pain level now: 3 Severity Comments: mild Associated symptoms: No: Fever, Abdominal pain, Chest pain Contributing factors: Sick contact Improved by: BM Worsened by: Eating Review of Systems Ten Systems: 10 systems reviewed and negative Constitutional: reports: Reviewed and negative Eyes: reports: Reviewed and negative Ears: reports: Reviewed and negative Nose: reports: Reviewed and negative Throat: reports: Reviewed and negative Cardiac: reports: Reviewed and negative Respiratory: reports: Reviewed and negative GI: reports: Reviewed and negative : reports: Dysuria Skin: reports: Reviewed and negative Musculoskeletal: reports: Reviewed and negative Neurologic: reports: Reviewed and negative Psychiatric: reports: Reviewed and negative Endocrine: reports: Reviewed and negative Immunocompromised: reports: Reviewed and negative PD PAST MEDICAL HISTORY - Past Medical History Cardiovascular: Hypertension Respiratory: None Endocrine/Autoimmune: Type 2 diabetes, HyPOthyroidism GI: GERD NETWORK SPECIALIST: None : None HEENT: None Psych: None Musculoskeletal: Osteoarthritis, Chronic back pain Derm: None Other Past Medical History: Reviewed and not pertinent - Past Surgical History Past Surgical History: Yes General: Cholecystectomy /NETWORK SPECIALIST: section Other past surgical history: Reviewed and not pertinent - Present Medications Home Medications: Ambulatory Orders Medication Instructions Recorded Confirmed Loperamide [Imodium] 2 mg PO QID PRN #20 capsule 06/17/18 Ondansetron Odt [Zofran] 4 mg TL Q6H PRN #10 tablet 06/17/18 - Allergies Allergies/Adverse Reactions: Allergies Allergy/AdvReac Type Severity Reaction Status Date / Time fluconazole [From Diflucan] Allergy Intermediate Respiratory Verified 06/17/18 20:20 bupropion Allergy Rash Verified 06/17/18 20:20 Penicillins Allergy Respiratory Verified 06/17/18 20:20 codeine [Codeine] AdvReac Intermediate Rash Verified 06/17/18 20:20 morphine AdvReac Intermediate Rash Verified 06/17/18 20:20 buspirone [Buspirone] AdvReac Emesis Verified 06/17/18 20:20 cephalexin monohydrate * AdvReac Unknown Verified 06/17/18 20:20 [From Keflex] risperidone AdvReac Emesis Verified 06/17/18 20:20 - Living Situation Living Situation: reports: With spouse/s.o. Living Arrangement: reports: At home - Social History Does the pt smoke?: Yes Smoking Status: Current every day smoker Does the pt drink ETOH?: Yes Does the pt have substance abuse?: Yes - Family History Family history: reports: Other (Reviewed and not pertinent) - Immunizations Immunizations are current?: Yes - POLST Patient has POLST: No PD ED PE NORMAL - Vitals Vital signs reviewed: Yes - General General: Alert and oriented X 3, No acute distress - HEENT HEENT: PERRL - Neck Neck: Supple, no meningeal sign - Cardiac Cardiac: RRR, No murmur - Respiratory Respiratory: Clear bilaterally - Abdomen Abdomen: Normal bowel sounds, Soft, Non tender, Non distended - Derm Derm: Warm and dry - Extremities Extremities: No deformity - Neuro Neuro: Alert and oriented X 3 - Psych Psych: Normal mood, Normal affect Results - Vitals Vitals: Vital Signs - 24 hr 06/17/18 20:16 Temperature 36.1 C L Heart Rate 106 H Respiratory 18 Rate Blood Pressure 126/87 H O2 Saturation 96 Oxygen O2 Source Room air - Labs Labs: Laboratory Tests 06/17/18 21:09 Urine Color YELLOW Urine Clarity CLEAR Urine pH 5.0 Ur Specific [place] >=1.030 H Urine Protein TRACE Urine Glucose (UA) >=1000 H Urine Ketones NEGATIVE Urine Occult Blood NEGATIVE Urine Nitrite NEGATIVE Urine Bilirubin NEGATIVE Urine Urobilinogen 0.2 (NORMAL) Ur Leukocyte Esterase NEGATIVE Ur Microscopic Review NOT INDICATED Urine Culture Comments NOT INDICATED PD MEDICAL DECISION MAKING - ED course Complexity details: reviewed results, re-evaluated patient, considered differential, d/w patient, d/w family ED course: 53-year-old female with 6 hours of diarrhea. Labs consistent with dehydration. Patient given 1 L IV fluids, Imodium, Cipro due to blood in the diarrhea. Patient discharged with Imodium and Zofran as needed. Departure - Departure Disposition: 01 Home, Self Care Clinical Impression: Dysenteric diarrhea, Dehydration Condition: Good Instructions: ED Dehydration, ED Diarrhea Bacterial Follow-Up: Jacqueline Alexander ARNP [Primary Care Provider] - Prescriptions: Loperamide [Imodium] 2 mg PO QID PRN #20 capsule PRN Reason: Diarrhea Ondansetron Odt [Zofran] 4 mg TL Q6H PRN #10 tablet PRN Reason: Nausea / Vomiting Comments: Take Imodium as needed for diarrhea. Follow-up with PCP in 1-2 days. Return with worsening symptoms.
[2018-06-17 21:21] LABS: BILIRUBIN,URINE NEGATIVE (NEGATIVE); GLUCOSE, URINE (UA) >=1000 mg/dL (NEGATIVE); KETONES,URINE (UA) NEGATIVE (NEGATIVE); LEUKOCYTE ESTERASE, URINE NEGATIVE (NEGATIVE); NITRITE,URINE NEGATIVE (NEGATIVE); OCCULT BLOOD,URINE NEGATIVE (NEGATIVE); PROTEIN,URINE TRACE mg/dL (NEGATIVE); UROBILINOGEN,URINE 0.2 (NORMAL) E.U./dL (NORMAL)
[2018-06-17 21:44] LABS: CLARITY,URINE CLEAR (CLEAR)
[2018-06-17 22:08] VITALS: BP 140/92
== END 2018-06-17 22:11 | disposition home or self-care (01) ==
LOC: ED 20:12 → EEVIPCON 20:12 → ED 22:11
DX: A09 Infectious gastroenteritis and colitis, unspecified (principal); E11.9 Type 2 diabetes mellitus without complications; E03.9 Hypothyroidism, unspecified; I10 Essential (primary) hypertension; F17.200 Nicotine dependence, unspecified, uncomplicated
CPT/HCPCS: 36415; 81003; 96360; 99283; A9270; 81001; 87086

== ENCOUNTER 2018-06-23 13:07 | Outpatient (CLI) | payer MEDICAID ==
[2018-06-23 17:40] LABS: BASOPHILS % (AUTO) 0.4 %; EOSINOPHILS # (AUTO) 0.2 10^3/uL (0.0-0.7); EOSINOPHILS % (AUTO) 2.1 %; HGB - HEMOGLOBIN 16.5 g/dL (12.0-16.0); LYMPHOCYTES # (AUTO) 2.6 10^3/uL (1.5-3.5); LYMPHOCYTES % (AUTO) 29.6 %; MEAN CORPUSCULAR HEMOGLOBIN 29.4 pg (27.0-31.0); MEAN CORPUSCULAR HGB CONC 32.7 g/dL (32.0-36.0); MEAN PLATELET VOLUME 9.5 fL (7.9-10.8); MONOCYTES # (AUTO) 0.4 10^3/uL (0.0-1.0); MONOCYTES % (AUTO) 4.7 %; NEUTROPHILS # (AUTO) 5.5 10^3/uL (1.5-6.6); NEUTROPHILS % (AUTO) 63.2 %; PLT - PLATELET COUNT 247 10^3/uL (130-450); RED BLOOD COUNT 5.62 10^6/uL (4.20-5.40); RED CELL DISTRIBUTION WIDTH 13.6 % (12.0-15.0); WHITE BLOOD COUNT 8.8 x10^3/uL (4.8-10.8)
[2018-06-23 18:02] LABS: ALBUMIN 3.9 g/dL (3.2-5.5); ALBUMIN/GLOBULIN RATIO 1.2 (1.0-2.2); BILIRUBIN,TOTAL 0.5 mg/dL (0.2-1.0); CALCIUM 9.1 mg/dL (8.5-10.3); CREATININE 0.5 mg/dL (0.4-1.0); TOTAL PROTEIN 7.1 g/dL (6.7-8.2)
[2018-06-23 18:14] LABS: THYROID STIMULATING HORMONE < 0.08 uIU/mL (0.34-5.60)
[2018-06-23 18:17] LABS: FREE T4 (FREE THYROXINE) < 0.25 ng/dL (0.58-1.64)
[2018-06-23 18:18] LABS: CREATININE,URINE 34.5 mg/dL; MICROALBUM/CREATININE RATIO,UR 14.5 ug/mg (<30.0); MICROALBUMIN,URINE 0.5 mg/dL (0-300.0)
[2018-06-24 19:51] LABS: HB2 TOTAL 17.5 g/dL; HEMOGLOBIN A1C 2.14 g/dL; HEMOGLOBIN A1C % 13.3 % (4.6-6.2)
== END 2018-06-23 13:08 | disposition home or self-care (01) ==
LOC: LAB.F 13:07
PROVIDERS: ATTEND Nurse Practitioner Family
DX: E11.65 Type 2 diabetes mellitus with hyperglycemia (principal); E03.9 Hypothyroidism, unspecified; F41.9 Anxiety disorder, unspecified
CPT/HCPCS: 36415; 80053; 82043; 82570; 83036; 84439; 84443; 85025

== ENCOUNTER 2018-07-14 13:32 | Outpatient (CLI) | payer MEDICAID ==
[2018-07-16 12:41] LABS: HSV 1 IGG TYPE SPECIFIC AB 2.01 index; HSV 2 IGG TYPE SPECIFIC AB >23.00 index
== END 2018-07-14 13:33 | disposition home or self-care (01) ==
LOC: LAB.F 13:32
PROVIDERS: ATTEND Nurse Practitioner Family
DX: N89.9 Noninflammatory disorder of vagina, unspecified (principal)
CPT/HCPCS: 36415; 81599; 86695; 86696

== ENCOUNTER 2018-10-14 00:40 | Emergency (ER) | payer MEDICAID ==
[2018-10-14 00:47] VITALS: BP 114/95
[2018-10-14] MEDS ORDERED: SODIUM CHLORIDE 0.9% 1,000 ML IV ONE (01:14)
--- NOTE | 2018-10-14 01:30 | ED Physician Documentation ---
PD HPI NVD - Stated complaint Stated Complaint: FEMALE - Chief complaint Chief Complaint: Abd Pain - Additonal information Additional information: Patient left without being seen. Initially orders were placed for labs and fluids as pt reported to nurse diarrhea and dehydration. PD PAST MEDICAL HISTORY - Past Medical History Past Medical History: Yes Cardiovascular: Hypertension Respiratory: None Neuro: None Endocrine/Autoimmune: Type 2 diabetes, HyPOthyroidism GI: GERD CARRIAGE FEEDER: None : None HEENT: None Psych: Depression, Anxiety Musculoskeletal: Osteoarthritis, Chronic back pain Derm: None - Past Surgical History Past Surgical History: Yes General: Cholecystectomy /CARRIAGE FEEDER: section - Present Medications Home Medications: Ambulatory Orders Medication Instructions Recorded Confirmed Gabapentin 400 mg PO TID 10/14/18 10/14/18 Liothyronine Sodium 50 mcg PO DAILY 10/14/18 10/14/18 Metformin HCl [Fortamet] 500 mg PO DAILY 10/14/18 10/14/18 Omeprazole 40 mg PO BID 10/14/18 10/14/18 - Allergies Allergies/Adverse Reactions: Allergies Allergy/AdvReac Type Severity Reaction Status Date / Time fluconazole [From Diflucan] Allergy Intermediate Respiratory Verified 10/14/18 00:48 bupropion Allergy Rash Verified 10/14/18 00:48 Penicillins Allergy Respiratory Verified 10/14/18 00:48 codeine [Codeine] AdvReac Intermediate Rash Verified 10/14/18 00:48 morphine AdvReac Intermediate Rash Verified 10/14/18 00:48 buspirone [Buspirone] AdvReac Emesis Verified 10/14/18 00:48 cephalexin monohydrate * AdvReac Unknown Verified 10/14/18 00:48 [From Keflex] risperidone AdvReac Emesis Verified 10/14/18 00:48 - Social History Does the pt smoke?: Yes Smoking Status: Current every day smoker Does the pt drink ETOH?: Yes Does the pt have substance abuse?: Yes - Immunizations Immunizations are current?: Yes - POLST Patient has POLST: No Results - Vitals Vitals: Vital Signs - 24 hr 10/14/18 00:43 Temperature 36.8 C Heart Rate 122 H Respiratory 17 Rate Blood Pressure 114/95 H O2 Saturation 98 Oxygen O2 Source Room air Departure - Departure Disposition: ED Left Without Being Seen Discharge Date/Time: 10/14/18 01:28
== END 2018-10-14 01:28 | disposition left against medical advice (07) ==
LOC: ED 00:40
DX: Z53.21 Procedure and treatment not carried out due to patient leaving prior to being seen by health care provider (principal); E11.9 Type 2 diabetes mellitus without complications; F17.200 Nicotine dependence, unspecified, uncomplicated; Z79.84 Long term (current) use of oral hypoglycemic drugs
CPT/HCPCS: 80048; 85025; 99281

== ENCOUNTER 2018-12-08 13:34 | Day surgery (SDC) | payer MEDICAID ==
[2018-12-08] MEDS ORDERED: LACTATED RINGERS 1,000 ML IV ONE ×2 (14:26→17:55)
--- NOTE | 2018-12-08 15:50 | ANESTHESIA ---
Pre-Anesthesia VS, & Labs - Diagnosis gerd, abdominal pain, screening - Procedure egd, colonoscopy Vital Signs: Temp Pulse Resp BP Pulse Ox 36.5 C 98 18 141/96 H 97 12/08/18 13:59 12/08/18 13:59 12/08/18 13:59 12/08/18 13:59 12/08/18 13:59 Height 5 ft 4 in Weight (kg) 103.7 kg Body Mass Index 47.2 - NPO >8 hours - Is Patient ?: No - Lab Results Current Lab Results: Laboratory Tests 12/08/18 14:21: POC Whole Bld Glucose 239 H Home Medications and Allergies Home Medications: Ambulatory Orders Albuterol Sulfate [Proair Hfa Inhaler] 1 - 2 puffs INH Q4H PRN 12/01/18 Benzonatate 1 - 2 cap PO TID PRN 12/01/18 Cetirizine [ZyrTEC] 10 mg PO DAILY 12/01/18 Cyclobenzaprine [Flexeril] 10 mg PO TID PRN 12/01/18 Fluticasone [Flonase] 1 sprays JEMIMA DAILY 12/01/18 Gabapentin 600 mg PO QDLUNCH 12/01/18 Gabapentin 900 mg PO BID 12/01/18 Ibuprofen 800 mg PO TID PRN 12/01/18 Montelukast [Singulair] 10 mg PO QPM 12/08/18 Liothyronine Sodium 100 mcg PO DAILY 10/14/18 Metformin HCl [Fortamet] 500 mg PO DAILY 10/14/18 Omeprazole 40 mg PO DAILY 10/14/18 Albuterol Sulfate [Proair Hfa Inhaler] 1 - 2 puffs INH Q4H PRN 12/01/18 Benzonatate 1 - 2 cap PO TID PRN 12/01/18 Cetirizine [ZyrTEC] 10 mg PO DAILY 12/01/18 Cyclobenzaprine [Flexeril] 10 mg PO TID PRN 12/01/18 Fluticasone [Flonase] 1 sprays JEMIMA DAILY 12/01/18 Gabapentin 600 mg PO QDLUNCH 12/01/18 Gabapentin 900 mg PO BID 12/01/18 Ibuprofen 800 mg PO TID PRN 12/01/18 Montelukast [Singulair] 10 mg PO QPM 12/08/18 Allergies/Adverse Reactions: Allergies Allergy/AdvReac Type Severity Reaction Status Date / Time fluconazole [From Diflucan] Allergy Intermediate Anaphylaxis Verified 12/08/18 14:12 morphine Allergy Intermediate Rash Verified 12/08/18 14:12 bupropion Allergy Rash Verified 12/08/18 14:12 Penicillins Allergy Anaphylaxis Verified 12/08/18 14:12 codeine [Codeine] AdvReac Intermediate Rash Verified 12/08/18 14:12 buspirone [Buspirone] AdvReac Emesis Verified 12/08/18 14:12 cephalexin monohydrate * AdvReac Anaphylaxis Verified 12/08/18 14:12 [From Keflex] risperidone AdvReac Emesis Verified 12/08/18 14:12 Anes History & Medical History - Anesthetic History Anesthesia Complications: reports: Post-Operative Nausea/Vomiting Family history of Anesthesia Complications: Denies Family history of Malignant Hyperthermia: Denies - Medical History Cardiovascular: reports: Hypertension Pulmonary: reports: Asthma, Sleep apnea Gastrointestinal: reports: GERD Urinary: reports: Incontinence Neuro: reports: None Musculoskeletal: reports: Osteoarthritis, Fibromyalgia, Chronic back pain Endocrine/Autoimmune: reports: Type 2 diabetes, HyPOthyroidism Blood Disorders: reports: None Skin: reports: None, Other Smoking Status: Current every day smoker - Surgical History General: Cholecystectomy Gynecologic: section Exam General: Alert, Oriented x3, Cooperative, No acute distress Dental: Loose/Frag Mouth Openin Fingerbreadth Neck Mobility: Normal Mallampati classification: II Thyromental Distance: 4-6 cm Respiratory: Lungs clear, Normal breath sounds, No respiratory distress, No accessory muscle use Cardiovascular: Regular rate, Normal S1, Normal S2, No murmurs Plan Anesthesia Type: MAC Consent for Procedure(s) Verified and Reviewed: Yes Code Status: Attempt Resuscitation ASA classification: 3-Severe systemic disease Is this case an emergency?: No
[2018-12-08 16:30] LABS: HCG UR QUAL NEGATIVE
[2018-12-08] MEDS ORDERED: LIDO GARGLE 30 ML BOTTLE ONE (17:10)
[2018-12-08] MEDS ORDERED: PROPOFOL 200 MG/20 ML VIAL IVP ONE (19:15)
[2018-12-08] MEDS ORDERED: LIDOCAINE-MPF 2% 5 ML VIAL IM ONE (19:15)
[2018-12-08 19:42] VITALS: BP 135/93
--- NOTE | 2018-12-14 12:15 | PROVIDER PROGRESS NOTE ---
Subjective - Prog Note Date Prog Note Date: 12/08/18 Prog Note Time: 18:00 - Subjective Subjective: Kavitha is awake and alert following colonoscopy with removal of multiple polyps. She denies any discomfort. She is discharged to the care of her signific ant other.
== END 2018-12-08 13:35 | disposition home or self-care (01) ==
LOC: SDS 13:34
PROVIDERS: ATTEND Surgery
PROC: 0DB98ZX Excision of Duodenum, Via Natural or Artificial Opening Endoscopic, Diagnostic (ICD-10-PCS; 2018-12-08)
PROC: 0DB68ZX Excision of Stomach, Via Natural or Artificial Opening Endoscopic, Diagnostic (ICD-10-PCS; 2018-12-08)
PROC: 0DB48ZX Excision of Esophagogastric Junction, Via Natural or Artificial Opening Endoscopic, Diagnostic (ICD-10-PCS; 2018-12-08)
PROC: 0DBL8ZZ Excision of Transverse Colon, Via Natural or Artificial Opening Endoscopic (ICD-10-PCS; principal; 2018-12-08 14:30)
PROC: 0DBN8ZZ Excision of Sigmoid Colon, Via Natural or Artificial Opening Endoscopic (ICD-10-PCS; 2018-12-08 14:30)
DX: R19.7 Diarrhea, unspecified (principal); D12.3 Benign neoplasm of transverse colon; K63.5 Polyp of colon; K57.30 Diverticulosis of large intestine without perforation or abscess without bleeding; K64.8 Other hemorrhoids; K64.4 Residual hemorrhoidal skin tags; K29.70 Gastritis, unspecified, without bleeding; K21.0 Gastro-esophageal reflux disease with esophagitis; J44.9 Chronic obstructive pulmonary disease, unspecified; I10 Essential (primary) hypertension; G47.30 Sleep apnea, unspecified; E11.9 Type 2 diabetes mellitus without complications; E66.9 Obesity, unspecified; F17.210 Nicotine dependence, cigarettes, uncomplicated; F15.20 Other stimulant dependence, uncomplicated; Z90.49 Acquired absence of other specified parts of digestive tract; Z80.9 Family history of malignant neoplasm, unspecified; Z68.42 Body mass index [BMI] 45.0-49.9, adult; Z79.899 Other long term (current) drug therapy; Z79.84 Long term (current) use of oral hypoglycemic drugs; Z79.51 Long term (current) use of inhaled steroids
CPT/HCPCS: 43239; 45385; 81025; A9270; J7120

== ENCOUNTER 2018-12-30 22:45 | Emergency (ER) | payer MEDICAID ==
--- NOTE | 2018-12-30 22:54 | ED Physician Documentation ---
History of Present Illness - Stated complaint Stated Complaint: RT EYE & FINGER PX - History obtained from History obtained from: Patient - History of Present Illness Timing: Today Pain level now: 5 Improved by: no ameliorating factors Associated symptoms: movement, palpation (finger) - Additonal information Additional information: chief c/o is right 3rd finger pain since this afternoon. no recollection of injury. also c/o right eye upper lid discomfort, swelling x 1-2 days Review of Systems Constitutional: denies: Fever Eyes: reports: Irritation (right upper eyelid). 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 : Incontinence HEENT: Chronic sinusitis Psych: Depression, Anxiety, ADD/ADHD, Post traumatic stress disorder, Claustrophobia Musculoskeletal: Osteoarthritis, Fibromyalgia, Chronic back pain Derm: None, Other - Past Surgical History Past Surgical History: Yes General: Cholecystectomy /NATIONAL SALES DIRECTOR: section - Present Medications Home Medications: Ambulatory Orders Medication Instructions Recorded Confirmed Liothyronine Sodium 100 mcg PO DAILY 10/14/18 12/08/18 Metformin HCl [Fortamet] 500 mg PO DAILY 10/14/18 12/08/18 Omeprazole 40 mg PO DAILY 10/14/18 12/08/18 Albuterol Sulfate [Proair Hfa 1 - 2 puffs INH Q4H PRN 12/01/18 12/08/18 Inhaler] Benzonatate 1 - 2 cap PO TID PRN 12/01/18 12/08/18 Cetirizine [ZyrTEC] 10 mg PO DAILY 12/01/18 12/08/18 Cyclobenzaprine [Flexeril] 10 mg PO TID PRN 12/01/18 12/08/18 Fluticasone [Flonase] 1 sprays JEMIMA DAILY 12/01/18 12/08/18 Gabapentin 600 mg PO QDLUNCH 12/01/18 12/08/18 Gabapentin 900 mg PO BID 12/01/18 12/08/18 Ibuprofen 800 mg PO TID PRN 12/01/18 12/08/18 Montelukast [Singulair] 10 mg PO QPM 12/08/18 12/08/18 Clindamycin HCl [Clindamycin 300MG 300 mg PO Q6H #28 capsule 12/31/18 CAP] - Allergies Allergies/Adverse Reactions: Allergies Allergy/AdvReac Type Severity Reaction Status Date / Time cephalexin [From Keflex] AdvReac Unknown Verified 12/31/18 00:20 Penicillins AdvReac Unknown Verified 12/31/18 00:20 sulfamethoxazole AdvReac Unknown Verified 12/31/18 00:19 [From Bactrim] trimethoprim [From Bactrim] AdvReac Unknown Verified 12/31/18 00:19 - Social History Does the pt smoke?: Yes Smoking Status: Current every day smoker Does the pt drink ETOH?: Yes Does the pt have substance abuse?: Yes - Immunizations Immunizations are current?: Yes - POLST Patient has POLST: No PD ED PE NORMAL - Vitals Vital signs reviewed: Yes - General General: Alert and oriented X 3, No acute distress, Well developed/nourished - HEENT HEENT: PERRL, EOMI, Other (normal right eye exam including eyelids (no tenderness, swelling, erythema)) PD ED PE EXPANDED - Extremities Extremities: Other (erythema, swelling, tenderness as diagrammed below. there is a punctate opening in the skin on pad of the finger (right 3rd finger, dorsal surface)) JACOB UE/Hands Visual: 1 - swelling, tenderness Results - Vitals Vitals: Oxygen O2 Source Room air Procedures - FB removal FB location: Subcutaneous FB removal preparation: Local anesthesia-specify (1% lidocaine without epinephrine) Removal method: Foreceps, Other (local infiltration of 1% lidocaine into the right third finger dorsal surface at area of skin defect (tiny puncture). this was performed after application of hibiclens and then further cleaned with alcohol swab. using the bevelled edge of 23g needle, small incision made and a 3mm wooden splinter was removed) FB removal aftercare: No complications, Patient tolerated well, Removed successfully PD MEDICAL DECISION MAKING - ED course Complexity details: considered differential, d/w patient Departure - Departure Disposition: 01 Home, Self Care Clinical Impression: Foreign body of finger, right, infected Qualifiers: Encounter type: initial encounter Qualified Code(s): S60.459A - Superficial foreign body of unspecified finger, initial encounter Condition: Good Instructions: ED Infec Skin Cellulitis, ED Foreign Body Soft Tissue Removed Follow-Up: Lona Hernandez ARNP [Primary Care Provider] - (2-3 days for wound check) Prescriptions: Clindamycin HCl [Clindamycin 300MG CAP] 300 mg PO Q6H #28 capsule Discharge Date/Time: 12/31/18 00:32
[2018-12-30] MEDS ORDERED: LIDOCAINE 1% 2 ML VIAL SUBQ STA (23:18)
[2018-12-31] MEDS ORDERED: BACITRACIN OINT TOP STA (00:17)
[2018-12-31] MEDS ORDERED: CLINDAMYCIN 150 MG CAPSULE PO STA (00:18)
[2018-12-31 00:26] VITALS: BP 128/101
== END 2018-12-31 00:32 | disposition home or self-care (01) ==
LOC: ED 22:45
DX: S61.242A Puncture wound with foreign body of right middle finger without damage to nail, initial encounter (principal); X58.XXXA Exposure to other specified factors, initial encounter; I10 Essential (primary) hypertension; E11.9 Type 2 diabetes mellitus without complications; F17.200 Nicotine dependence, unspecified, uncomplicated
CPT/HCPCS: 10120; 99283; A9270

== ENCOUNTER 2019-01-21 08:00 | Outpatient (CLI) | payer MEDICAID | END 2019-01-21 23:59 | disposition home or self-care (01) | LOC: LAB.R 08:00 | PROVIDERS: ATTEND Surgery | DX: R19.7 Diarrhea, unspecified (principal) | CPT/HCPCS: 81599; 83630; 87045; 87046; 87177; 87209; 87329; 87493 ==

== ENCOUNTER 2019-01-27 02:27 | Outpatient (CLI) | payer MEDICAID | END 2019-01-27 02:28 | disposition home or self-care (01) | LOC: EMS 02:27 | PROVIDERS: ATTEND Surgery | DX: Z03.89 Encounter for observation for other suspected diseases and conditions ruled out (principal) ==

== ENCOUNTER 2019-04-05 09:00 | Outpatient (CLI) | payer MEDICAID | END 2019-04-05 23:59 | disposition home or self-care (01) | LOC: LAB.R 09:00 | PROVIDERS: ATTEND Registered Nurse | DX: J02.9 Acute pharyngitis, unspecified (principal) | CPT/HCPCS: 87070 ==

== ENCOUNTER 2019-05-13 13:47 | Outpatient (CLI) | payer MEDICAID | END 2019-05-13 13:48 | disposition home or self-care (01) | LOC: LAB.S 13:47 | PROVIDERS: ATTEND Family Medicine | DX: R05 Cough (principal) | CPT/HCPCS: 36415; 81599; 86615 ==

== ENCOUNTER 2019-05-29 21:43 | Emergency (ER) | payer MEDICAID ==
--- NOTE | 2019-05-29 21:55 | ED Physician Documentation ---
PD HPI SKIN - Stated complaint Stated Complaint: SICK FOR 3 MONTHS, THIGH BUMP - Chief complaint Chief Complaint: Wound - History obtained from History obtained from: Patient - History of Present Illness Timing - onset: How many days ago (3) Timing - duration: Days (3) Timing - details: Gradual onset, Still present Location: LLE (upper medial left thigh.) Quality / character: Painful, Discolored (red), Swelling. No: Draining Associated symptoms: Other (On relatedly she has had a cough for a few months with a couple of different antibiotics as well as steroids inhaler and Tessalon without much improvement. She was given treatment for potential pertussis. Her main relief had come with hydrocodone cough medicine.). No: Fever, Abd pain Similar symptoms before: Diagnosis (She has had prior inguinal and thigh abscesses in the past with lancing required.) Review of Systems Constitutional: denies: Fever, Chills, Myalgias Throat: denies: Sore throat Cardiac: denies: Chest pain / pressure Respiratory: reports: Cough. 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 : Incontinence HEENT: Chronic sinusitis Psych: Depression, Anxiety, ADD/ADHD, Post traumatic stress disorder, Claustrophobia Musculoskeletal: Osteoarthritis, Fibromyalgia, Chronic back pain Derm: None, Other - Past Surgical History Past Surgical History: Yes General: Cholecystectomy /BILLER: section - Present Medications Home Medications: Ambulatory Orders Medication Instructions Recorded Confirmed Liothyronine Sodium 100 mcg PO DAILY 10/14/18 12/08/18 Metformin HCl [Fortamet] 500 mg PO DAILY 10/14/18 12/08/18 Omeprazole 40 mg PO DAILY 10/14/18 12/08/18 Albuterol Sulfate [Proair Hfa 1 - 2 puffs INH Q4H PRN 12/01/18 12/08/18 Inhaler] Benzonatate 1 - 2 cap PO TID PRN 12/01/18 12/08/18 Cetirizine [ZyrTEC] 10 mg PO DAILY 12/01/18 12/08/18 Cyclobenzaprine [Flexeril] 10 mg PO TID PRN 12/01/18 12/08/18 Fluticasone [Flonase] 1 sprays JEMIMA DAILY 12/01/18 12/08/18 Gabapentin 600 mg PO QDLUNCH 12/01/18 12/08/18 Gabapentin 900 mg PO BID 12/01/18 12/08/18 Ibuprofen 800 mg PO TID PRN 12/01/18 12/08/18 Montelukast [Singulair] 10 mg PO QPM 12/08/18 12/08/18 Clindamycin HCl [Clindamycin 300MG 300 mg PO Q6H #28 capsule 12/31/18 CAP] Chlorhexidine Gluconate [Hibiclens] 15 ml TP DAILY #236 ml 05/29/19 Doxycycline Monohydrate 100 mg PO BID #14 tablet 05/29/19 Hydrocodone Bit/Homatrop Me-Br 5 ml PO Q6H PRN #120 ml 05/29/19 [Hydrocodone-Homatropine Syrup] Mupirocin 1 applic TP TID #15 g 05/29/19 - Allergies Allergies/Adverse Reactions: Allergies Allergy/AdvReac Type Severity Reaction Status Date / Time fluconazole [From Diflucan] Allergy Anaphylaxis Verified 05/29/19 22:31 cephalexin [From Keflex] AdvReac Unknown Verified 05/29/19 21:56 Penicillins AdvReac Unknown Verified 05/29/19 21:56 sulfamethoxazole AdvReac Unknown Verified 05/29/19 21:56 [From Bactrim] trimethoprim [From Bactrim] AdvReac Unknown Verified 05/29/19 21:56 - Social History Does the pt smoke?: Yes Smoking Status: Current every day smoker Does the pt drink ETOH?: Yes Does the pt have substance abuse?: Yes - Immunizations Immunizations are current?: Yes - POLST Patient has POLST: No PD ED PE NORMAL - Vitals Vital signs reviewed: Yes - General General: Alert and oriented X 3, Well developed/nourished - Neck Neck: Supple, no meningeal sign, No adenopathy - Cardiac Cardiac: RRR, No murmur - Respiratory Respiratory: Clear bilaterally - Derm Derm: Normal color, Warm and dry, Other (The left medial upper thigh almost to the crural area shows a reddened raised fluctuant area about 2 to 3 cm diameter with a surrounding 4 to 6 cm area of redness and some tenderness. There is no crepitance felt. Bedside ultrasound shows localized fluid in a single pocket.) - Neuro Neuro: Alert and oriented X 3, No motor deficit, Normal speech Results - Vitals Vitals: Vital Signs - 24 hr 05/29/19 05/29/19 21:45 23:09 Temperature 36.8 C Heart Rate 102 H 96 Respiratory 17 16 Rate Blood Pressure 123/81 H 124/80 O2 Saturation 95 16 L Oxygen O2 Source Room air Procedures - Abscess I&D (location) left medial upper thigh Preparation: Confirmed with ultrasound, Lidocaine 1%, With epi Incision: Incised with scalpel, Purulent drainage, Irrigated. No: Packed, Culture obtained Other: Pt tolerated well, Dressing applied, Antibiotic prescribed PD MEDICAL DECISION MAKING - ED course Complexity details: reviewed results (Main issue for presentation was a abscess in the upper medial left thigh. This was lanced with purulence expressed. Antibiotics will be prescribed for cellulitic changes around it as well. She has also had a persistent cough and can give some cough medicine for that. She states steroids and Tessalon did not help and had been tried by her primary care. The narcotic cough medicine it helps the most.), considered differential, d/w patient Departure - Departure Disposition: 01 Home, Self Care Clinical Impression: Abscess of thigh, Persistent cough Condition: Stable Record reviewed to determine appropriate education?: Yes Instructions: ED Abscess IandD Follow-Up: Lona Hernandez ARNP [Primary Care Provider] - Prescriptions: Chlorhexidine Gluconate [Hibiclens] 15 ml TP DAILY #236 ml Doxycycline Monohydrate 100 mg PO BID #14 tablet Hydrocodone Bit/Homatrop Me-Br [Hydrocodone-Homatropine Syrup] 5 ml PO Q6H PRN #120 ml PRN Reason: Cough Mupirocin 1 applic TP TID #15 g Comments: Cleanse the wound area 2-3 times daily with soap and water and apply mupirocin antibiotic ointment. Daily with your bath or cleansing use the chlorhexidine antiseptic solution body wide and particularly around the lower torso and thighs to reduce the amount of germs in the area prevent other at other sites from developing. Doxycycline antibiotic twice daily for a week. Hydrocodone cough syrup as needed for your cough. Tylenol for pains. Discharge Date/Time: 05/29/19 23:09
[2019-05-29] MEDS ORDERED: HYDROcod/ACETAM 5/325 MG TABLET PO STA (22:11)
[2019-05-29] MEDS ORDERED: DOXYCYCLINE 100 MG TABLET PO STA (22:11)
[2019-05-29] MEDS ORDERED: HYDROcod/ACET 5/325 Prepack 4 PO STA (22:11)
[2019-05-29] MEDS ORDERED: FLUCONAZOLE 100 MG TABLET PO STA (22:12)
[2019-05-29] MEDS ORDERED: IBUPROFEN 600 MG TABLET PO STA (22:14)
[2019-05-29 23:10] VITALS: BP 124/80
== END 2019-05-29 23:09 | disposition home or self-care (01) ==
LOC: ED 21:43
DX: L02.416 Cutaneous abscess of left lower limb (principal); L03.116 Cellulitis of left lower limb; R05 Cough; I10 Essential (primary) hypertension; E11.9 Type 2 diabetes mellitus without complications; F17.200 Nicotine dependence, unspecified, uncomplicated; Z79.84 Long term (current) use of oral hypoglycemic drugs
CPT/HCPCS: 10060; 99284; A9270

== ENCOUNTER 2019-06-03 10:45 | Outpatient (CLI) | payer MEDICAID | END 2019-06-03 23:59 | disposition home or self-care (01) | LOC: LAB.R 10:45 | PROVIDERS: ATTEND Family Medicine | DX: J02.9 Acute pharyngitis, unspecified (principal) | CPT/HCPCS: 87070; 87077 ==

== ENCOUNTER 2019-06-03 13:59 | Outpatient (CLI) | payer MEDICAID | END 2019-06-03 14:00 | disposition home or self-care (01) | LOC: LAB.S 13:59 | PROVIDERS: ATTEND Family Medicine | DX: R05 Cough (principal); J02.9 Acute pharyngitis, unspecified | CPT/HCPCS: 36415; 81599; 86615; 87798 ==

== ENCOUNTER 2019-09-28 15:42 | Emergency (ER) | payer MEDICAID ==
--- NOTE | 2019-09-28 16:00 | ED Physician Documentation ---
History of Present Illness - Stated complaint Stated Complaint: NAUSEA,BACK PAIN,DIZZINESS - Chief complaint Chief Complaint: Abd Pain - History obtained from History obtained from: Patient (Pt presents with multiple concerns today. She has had generalized abdominal pain for several days, mid epigastric into left upper quadrant but also diffuse. She has also been vomiting and feels dehydrated. Non-bloody emesis. Tolerating sips of PO. Occasional non-bloody diarrhea. She also thinks her urine smells bad and is "cloudy." She has mild dysuria, no urg/freq/hematuria. No flank pain. No vaginal discharge. Pt also noting persistent dizziness and right ear pain w/ drainage. She is followed in the clinic for a recurrent right otitis externa and states she normally gets an "antibiotic gel" for this but it is on backorder from her pharmacy and "this is the only thing that ever helps." No headache, no fever, no URI sx.) Review of Systems Constitutional: reports: Reviewed and negative Eyes: reports: Reviewed and negative Ears: reports: Ear pain (right ear pain), Drainage/discharge (right ear drainage) Nose: reports: Rhinorrhea / runny nose, Congestion Throat: reports: Reviewed and negative Cardiac: reports: Reviewed and negative Respiratory: reports: Reviewed and negative GI: reports: Abdominal Pain, Nausea, Vomiting, Constipation. denies: Diarrhea, Hematemesis, Bloody / black stool : reports: Dysuria. 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 : Incontinence HEENT: Chronic sinusitis Psych: Depression, Anxiety, ADD/ADHD, Post traumatic stress disorder, Claustrophobia Musculoskeletal: Osteoarthritis, Fibromyalgia, Chronic back pain Derm: None, Other - Past Surgical History Past Surgical History: Yes General: Cholecystectomy /BOTTOM BLEACHER: section - Present Medications Home Medications: Ambulatory Orders Medication Instructions Recorded Confirmed Liothyronine Sodium 100 mcg PO DAILY 10/14/18 12/08/18 Metformin HCl [Fortamet] 500 mg PO DAILY 10/14/18 12/08/18 Omeprazole 40 mg PO DAILY 10/14/18 12/08/18 Albuterol Sulfate [Proair Hfa 1 - 2 puffs INH Q4H PRN 12/01/18 12/08/18 Inhaler] Benzonatate 1 - 2 cap PO TID PRN 12/01/18 12/08/18 Cetirizine [ZyrTEC] 10 mg PO DAILY 12/01/18 12/08/18 Cyclobenzaprine [Flexeril] 10 mg PO TID PRN 12/01/18 12/08/18 Fluticasone [Flonase] 1 sprays JEMIMA DAILY 12/01/18 12/08/18 Gabapentin 600 mg PO QDLUNCH 12/01/18 12/08/18 Gabapentin 900 mg PO BID 12/01/18 12/08/18 Ibuprofen 800 mg PO TID PRN 12/01/18 12/08/18 Montelukast [Singulair] 10 mg PO QPM 12/08/18 12/08/18 Clindamycin HCl [Clindamycin 300MG 300 mg PO Q6H #28 capsule 12/31/18 CAP] Chlorhexidine Gluconate [Hibiclens] 15 ml TP DAILY #236 ml 05/29/19 Doxycycline Monohydrate 100 mg PO BID #14 tablet 05/29/19 Hydrocodone Bit/Homatrop Me-Br 5 ml PO Q6H PRN #120 ml 05/29/19 [Hydrocodone-Homatropine Syrup] Mupirocin 1 applic TP TID #15 g 05/29/19 Ciproflox/Dexameth Otic Drops 4 drops RIGHTEAR BID #1 bottle 09/28/19 [Ciprodex] Nitrofurantoin Monohyd/M-Cryst 100 mg PO BID #10 capsule 09/28/19 [Macrobid 100 mg Capsule] Ondansetron Odt [Zofran Odt] 4 mg TL Q6H PRN #10 tablet 09/28/19 - Allergies Allergies/Adverse Reactions: Allergies Allergy/AdvReac Type Severity Reaction Status Date / Time codeine Allergy Hives Verified 09/28/19 15:52 fluconazole [From Diflucan] Allergy Anaphylaxis Verified 09/28/19 15:52 cephalexin [From Keflex] AdvReac Unknown Verified 09/28/19 15:52 Penicillins AdvReac Unknown Verified 09/28/19 15:52 sulfamethoxazole AdvReac Unknown Verified 09/28/19 15:52 [From Bactrim] trimethoprim [From Bactrim] AdvReac Unknown Verified 09/28/19 15:52 - Social History Does the pt smoke?: Yes Smoking Status: Current every day smoker Does the pt drink ETOH?: Yes Does the pt have substance abuse?: Yes - Immunizations Immunizations are current?: Yes - POLST Patient has POLST: No PD ED PE NORMAL - Vitals Vital signs reviewed: Yes - General General: Alert and oriented X 3, Well developed/nourished - HEENT HEENT: Atraumatic, PERRL, Other (right ear canal swelling with dried peeling skin over the tragus and opening of the right ear canal. Macerated right ear canal, TM appears perforated, no erythema. No mastoid swelling/redness/ tenderness. ) - Neck Neck: Supple, no meningeal sign, No adenopathy, No JVD - Cardiac Cardiac: RRR, No murmur - Respiratory Respiratory: No respiratory distress, Clear bilaterally - Abdomen Abdomen: Normal bowel sounds, Soft, Non distended, Other (Generalized abd ttp, no focal tenderness or guarding) - Back Back: No CVA TTP, No spinal TTP - Derm Derm: Normal color, Warm and dry, No rash - Extremities Extremities: No tenderness to palpate, Normal ROM s pain, No edema, No calf tenderness / cord - Neuro Neuro: Alert and oriented X 3, No motor deficit, No sensory deficit, Normal speech Eye Opening: Spontaneous Motor: Obeys Commands Verbal: Oriented GCS Score: 15 Results - Vitals Vitals: Vital Signs - 24 hr 09/28/19 09/28/19 09/28/19 15:45 16:52 18:04 Temperature 36.8 C Heart Rate 88 78 83 Respiratory 16 19 15 Rate Blood Pressure 122/74 126/89 H 143/81 H O2 Saturation 98 100 100 09/28/19 18:38 Temperature 36.9 C Heart Rate 85 Respiratory 16 Rate Blood Pressure 114/58 L O2 Saturation 98 Oxygen O2 Source Room air - Labs Labs: Laboratory Tests 09/28/19 09/28/19 09/28/19 16:45 16:45 17:50 WBC 7.9 RBC 5.43 H Hgb 16.6 H Hct 50.0 H MCV 92.1 MCH 30.6 MCHC 33.2 RDW 13.7 Plt Count 244 MPV 9.6 Neut # (Auto) 5.3 Lymph # (Auto) 2.1 Ocean # (Auto) 0.3 Eos # (Auto) 0.1 Baso # (Auto) 0.1 Absolute Nucleated RBC 0.00 Nucleated RBC % 0.0 Sodium 135 Potassium 3.2 L Chloride 96 L Carbon Dioxide 31 Anion Gap 8.0 BUN 10 Creatinine 0.8 Estimated GFR (MDRD) 75 L Glucose 254 H Calcium 9.2 Total Bilirubin 1.0 AST 18 ALT 20 Alkaline Phosphatase 84 Total Protein 7.2 Albumin 4.3 Globulin 2.9 Albumin/Globulin Ratio 1.5 Lipase 17 L Urine Color YELLOW Urine Clarity CLOUDY Urine pH 6.5 Ur Specific [place] 1.010 Urine Protein NEGATIVE Urine Glucose (UA) NEGATIVE Urine Ketones NEGATIVE Urine Occult Blood TRACE-LYSE Urine Nitrite NEGATIVE Urine Bilirubin NEGATIVE Urine Urobilinogen 1 (NORMAL) Ur Leukocyte Esterase MODERATE H Urine RBC 6-10 H Urine WBC >25 H Ur Squamous Epith Cells FEW Squamous Urine Bacteria Many H Ur Microscopic Review INDICATED Urine Culture Comments INDICATED PD MEDICAL DECISION MAKING - ED course Complexity details: reviewed old records, reviewed results, re-evaluated patient ED course: Pt presented w/ n/v and dysuria and was noted on exam to have a urinary tract infection. She felt substantially better after IV NS and zofran. She is kay ating po. We will discharge her with Macrobid as she has numerous allergies to antibiotics and this is a good selection for an uncomplicated cystitis. She does have ongoing dizziness which may be related to the UTI or the recurrent otitis media pt has. She has been seen for this an an outpatient and reports she typically is prescribed an antibiotic gel but the pharmacy has not had this available for several weeks. I will prescribe ciprodex for this problem. She does not have mastoid tender/erythema to suggest mastoiditis and is afebrile with an uncomplicated infection. If dizziness persists or she has no improvement in symptoms after course of treatment for UTI and external otitis media she is to return for further evaluation. She was advised to return at anytime if she developed fever, chills, or was unable to tolerate her oral antibiotics. Departure - Departure Disposition: 01 Home, Self Care Clinical Impression: Acute urinary tract infection External otitis of right ear Qualifiers: Otitis externa type: other infective Chronicity: acute Qualified Code(s): H60.391 - Other infective otitis externa, right ear Condition: Good Instructions: ANTIBIOTIC, Other, ED UTI Cystitis Female, ED Otitis Externa Prescriptions: Ciproflox/Dexameth Otic Drops [Ciprodex] 4 drops RIGHTEAR BID #1 bottle Nitrofurantoin Monohyd/M-Cryst [Macrobid 100 mg Capsule] 100 mg PO BID #10 capsule Ondansetron Odt [Zofran Odt] 4 mg TL Q6H PRN #10 tablet PRN Reason: Nausea / Vomiting Comments: You presented with abdominal pain, nausea, vomiting, dizziness, and concern for possible urinary tract infection. The urinalysis we performed does indicate a likely infection. I will treat you with a antibiotic called Johnbid for 5 days, please take entire course. You also have a recurrence of your right otitis externa ear infection. You have been unable to obtain the antibiotic gel you typically use so we will prescribe ciprodex ear drops which help treat otitis externa. Please follow up with your regular doctor for ongoing treatment of this issue. If you continue to have abdominal pain and vomiting and your urinary symptoms are not relieved with treatment, or you develop a fever or worsening symptoms, please return to the ER. We will send the urine to lab for a culture and in some cases the culture indicates a bacteria that is not treated by the antibiotic prescribed. If this happens, we will notify you and adjust the antibiotic accordingly. Discharge Date/Time: 09/28/19 18:42
[2019-09-28] MEDS ORDERED: SODIUM CHLORIDE 0.9% 1,000 ML IV ONE (16:20)
[2019-09-28] MEDS ORDERED: ONDANSETRON 4 MG/2 ML VIAL IVP STA (16:20)
[2019-09-28 16:51] LABS: BASOPHILS # (AUTO) 0.1 10^3/uL (0.0-0.1); BASOPHILS % (AUTO) 0.8 %; EOSINOPHILS # (AUTO) 0.1 10^3/uL (0.0-0.7); EOSINOPHILS % (AUTO) 1.4 %; HGB - HEMOGLOBIN 16.6 g/dL (12.0-16.0); LYMPHOCYTES # (AUTO) 2.1 10^3/uL (1.5-3.5); LYMPHOCYTES % (AUTO) 26.2 %; MEAN CORPUSCULAR HEMOGLOBIN 30.6 pg (27.0-31.0); MEAN CORPUSCULAR HGB CONC 33.2 g/dL (32.0-36.0); MEAN CORPUSCULAR VOLUME 92.1 fL (81.0-99.0); MEAN PLATELET VOLUME 9.6 fL (7.9-10.8); MONOCYTES # (AUTO) 0.3 10^3/uL (0.0-1.0); MONOCYTES % (AUTO) 3.8 %; NEUTROPHILS # (AUTO) 5.3 10^3/uL (1.5-6.6); NEUTROPHILS % (AUTO) 67.3 %; PLT - PLATELET COUNT 244 10^3/uL (130-450); RED BLOOD COUNT 5.43 10^6/uL (4.20-5.40); RED CELL DISTRIBUTION WIDTH 13.7 % (12.0-15.0); WHITE BLOOD COUNT 7.9 x10^3/uL (4.8-10.8)
[2019-09-28 17:04] LABS: ALBUMIN 4.3 g/dL (3.2-5.5); ALBUMIN/GLOBULIN RATIO 1.5 (1.0-2.2); CALCIUM 9.2 mg/dL (8.5-10.3); CREATININE 0.8 mg/dL (0.4-1.0); TOTAL PROTEIN 7.2 g/dL (6.7-8.2)
[2019-09-28] MEDS ORDERED: KETOROLAC 30 MG/ML VIAL IVP STA (17:25)
[2019-09-28 18:01] LABS: BILIRUBIN,URINE NEGATIVE (NEGATIVE); GLUCOSE, URINE (UA) NEGATIVE (NEGATIVE); KETONES,URINE (UA) NEGATIVE (NEGATIVE); LEUKOCYTE ESTERASE, URINE MODERATE (NEGATIVE); NITRITE,URINE NEGATIVE (NEGATIVE); OCCULT BLOOD,URINE TRACE-LYSE (NEGATIVE); PH,URINE 6.5 PH (5.0-7.5); PROTEIN,URINE NEGATIVE (NEGATIVE); UROBILINOGEN,URINE 1 (NORMAL) E.U./dL (NORMAL)
[2019-09-28 18:05] LABS: CLARITY,URINE CLOUDY (CLEAR)
[2019-09-28 18:15] LABS: BACTERIA,URINE Many /HPF (None Seen); SQUAMOUS EPITHELIAL CELL,UR FEW Squamous (<= Few)
[2019-09-28 18:39] VITALS: BP 114/58
== END 2019-09-28 18:42 | disposition home or self-care (01) ==
LOC: ED 15:42
DX: N39.0 Urinary tract infection, site not specified (principal); H60.391 Other infective otitis externa, right ear; I10 Essential (primary) hypertension; E11.9 Type 2 diabetes mellitus without complications; F17.200 Nicotine dependence, unspecified, uncomplicated; Z79.84 Long term (current) use of oral hypoglycemic drugs
CPT/HCPCS: 36415; 80053; 81001; 81003; 83690; 85025; 87086; 87181; 96361; 96374; 96375; 99284

== ENCOUNTER 2019-11-14 05:17 | Emergency (ER) | payer MEDICAID ==
--- NOTE | 2019-11-14 05:25 | ED Physician Documentation ---
PD HPI OPHTHO - Stated complaint Stated Complaint: EYE IRRITATION - Chief complaint Chief Complaint: Heent - History obtained from History obtained from: Patient - History of Present Illness Timing - onset: Last night Location: Right Associated symptoms: Other (irritation) Recently seen: Not recently seen - Additional information Additional information: patient c/o irritation (per patient) of right eye since last night. she feels as though there was something in her eye last night and she irrigated the eye but this sensation persisted. this morning, she used a magnifying glass to look at her eye and believes she saw crabs in her eyelashes; in discussing this, it is apparent that she is referring to either body or pubic lice. she applied coconut oil to her lashes in an effort to eliminate them. Review of Systems Eyes: reports: Irritation. denies: Loss of vision, Decreased vision, Photophobia, Discharge PD PAST MEDICAL HISTORY - Past Medical History Cardiovascular: Hypertension Respiratory: Asthma, Sleep apnea Neuro: None Endocrine/Autoimmune: Type 2 diabetes, HyPOthyroidism GI: GERD RNP: None : Incontinence HEENT: Chronic sinusitis Psych: Depression, Anxiety, ADD/ADHD, Post traumatic stress disorder, Claustrophobia Musculoskeletal: Osteoarthritis, Fibromyalgia, Chronic back pain Derm: None, Other - Past Surgical History Past Surgical History: Yes General: Cholecystectomy /RNP: section - Present Medications Home Medications: Ambulatory Orders Medication Instructions Recorded Confirmed Liothyronine Sodium 100 mcg PO DAILY 10/14/18 11/14/19 Metformin HCl [Fortamet] 500 mg PO DAILY 10/14/18 11/14/19 Omeprazole 40 mg PO DAILY 10/14/18 11/14/19 Albuterol Sulfate [Proair Hfa 1 - 2 puffs INH Q4H PRN 12/01/18 11/14/19 Inhaler] Benzonatate 1 - 2 cap PO TID PRN 12/01/18 11/14/19 Cetirizine [ZyrTEC] 10 mg PO DAILY 12/01/18 11/14/19 Cyclobenzaprine [Flexeril] 10 mg PO TID PRN 12/01/18 11/14/19 Fluticasone [Flonase] 1 sprays JEMIMA DAILY 12/01/18 11/14/19 Gabapentin 600 mg PO QDLUNCH 12/01/18 11/14/19 Gabapentin 900 mg PO BID 12/01/18 11/14/19 Ibuprofen 800 mg PO TID PRN 12/01/18 11/14/19 Montelukast [Singulair] 10 mg PO QPM 12/08/18 11/14/19 Mupirocin 1 applic TP TID #15 g 05/29/19 11/14/19 Ondansetron Odt [Zofran Odt] 4 mg TL Q6H PRN #10 tablet 09/28/19 11/14/19 Erythromycin Base [Erythromycin 1 film RIGHTEYE BID #1 oint...g. 11/14/19 Ophthalmic Ointment] - Allergies Allergies/Adverse Reactions: Allergies Allergy/AdvReac Type Severity Reaction Status Date / Time SHARMIN Inhibitors Allergy Unknown Verified 11/14/19 05:27 adhesive Allergy Unknown Verified 11/14/19 05:27 buspirone Allergy Unknown Verified 11/14/19 05:27 codeine Allergy Hives Verified 11/14/19 05:27 duloxetine [From Cymbalta] Allergy Unknown Verified 11/14/19 05:27 fluconazole [From Diflucan] Allergy Anaphylaxis Verified 11/14/19 05:27 morphine Allergy Unknown Verified 11/14/19 05:27 cephalexin [From Keflex] AdvReac Unknown Verified 11/14/19 05:27 Penicillins AdvReac Unknown Verified 11/14/19 05:27 sulfamethoxazole AdvReac Unknown Verified 11/14/19 05:27 [From Bactrim] trimethoprim [From Bactrim] AdvReac Unknown Verified 11/14/19 05:27 - Social History Does the pt smoke?: Yes Smoking Status: Current every day smoker Does the pt drink ETOH?: Yes Does the pt have substance abuse?: Yes - Immunizations Immunizations are current?: Yes - POLST Patient has POLST: No PD ED PE NORMAL - Vitals Vital signs reviewed: Yes - General General: Alert and oriented X 3, No acute distress, Well developed/nourished - HEENT HEENT: Atraumatic, PERRL, EOMI PD ED PE EXPANDED - Eyes Eyes: Normal eyelids, Nl conjunctiva/sclera - Female Female : Normal external (exam limited to inspection of pubic hair and inguinal folds, no evidence of parasitic infestation (such as lice or scabies)), Family Advocate present (OLGA Hassan) Results - Vitals Vitals: Vital Signs - 24 hr 11/14/19 05:22 Temperature 36.4 C L Heart Rate 99 Respiratory 16 Rate Blood Pressure 118/77 O2 Saturation 100 Oxygen O2 Source Room air PD MEDICAL DECISION MAKING - ED course Complexity details: considered differential, d/w patient ED course: examination of eyes and eyelashes is normal. there is a solitary eyelash which has a scant amount/trace of mucous (inspected with montemayor lamp for magnification purposes). she then insisted I look at the gauze she had over the eye; using the montemayor lamp for magnification, I again note only scant mucous discharge and no nits or lice. she then asks that I look at her pubic hair for lice; with OLGA Hassan as motorcoach driver, I again find no evidence of infestation such as nits, burrows/tracts (scabies), or lice. patients description of right occular FB sensation is s/o possible corneal abrasion. unfortunately, I cannot test for this at this time, as there is no fluorescein available in the ED as well as the rest of the hospital. Will treat empirically with erythromycin ointment. Departure - Departure Disposition: 01 Home, Self Care Clinical Impression: Blepharitis of right eye Condition: Good Instructions: ED Inflammation Eyelid Prescriptions: Erythromycin Base [Erythromycin Ophthalmic Ointment] 1 film RIGHTEYE BID #1 oint...g. Discharge Date/Time: 11/14/19 06:53
[2019-11-14 05:27] VITALS: BP 118/77
[2019-11-14] MEDS ORDERED: ERYTHROMYCIN OPHTH OINT 1 GM TUBE RIGHTEYE STA (06:39)
== END 2019-11-14 06:53 | disposition home or self-care (01) ==
LOC: ED 05:17
DX: H01.003 Unspecified blepharitis right eye, unspecified eyelid (principal); I10 Essential (primary) hypertension; E11.9 Type 2 diabetes mellitus without complications; Z79.84 Long term (current) use of oral hypoglycemic drugs; F17.200 Nicotine dependence, unspecified, uncomplicated
CPT/HCPCS: 99282; 99283; J3490

== ENCOUNTER 2019-11-19 20:40 | Emergency (ER) | payer MEDICAID ==
[2019-11-19 20:49] VITALS: BP 135/97
[2019-11-19] MEDS ORDERED: PROPARACAINE 0.5% OPHTH DROPS 15 ML EACHEYE STA (20:55)
--- NOTE | 2019-11-19 21:15 | ED Physician Documentation ---
PD HPI OPHTHO - Stated complaint Stated Complaint: EYE PX - Chief complaint Chief Complaint: Heent - History obtained from History obtained from: Patient - History of Present Illness Timing - duration: Weeks (1) Pain level max: 3 Pain level now: 0 Location: Right Quality / character: Itching, Burning, Aching Associated symptoms: Redness, Swelling, Tearing, Discharge (Yellow), Photophobia Contributing factors: No: Blunt trauma, Penetrating trauma, Wears glasses, Wears contacts - Treatment prior to arrival Treatment prior to arrival: 54-year-old female states that she noticed redness, swelling and drainage to the right eye about a week ago. She feels that there are parasites in her eyelids. She has been using methamphetamines. She states that she pulls them off of her eyelids and it hurts. There is often bleeding afterwards as well. She states that she saw an emergency dispatch operator who gave her drops but she does not know what they were. She was seen in the emergency department and evaluated, placed on erythromycin and states that she was allergic to it so she stopped this. She does not wear contacts or glasses. No visual changes pain with opening her eyes. 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 : Incontinence HEENT: Chronic sinusitis Psych: Depression, Anxiety, ADD/ADHD, Post traumatic stress disorder, Claustrophobia Musculoskeletal: Osteoarthritis, Fibromyalgia, Chronic back pain Derm: None, Other - Past Surgical History Past Surgical History: Yes General: Cholecystectomy /MARINE ENGINE MACHINIST APPRENTICE: section - Present Medications Home Medications: Ambulatory Orders Medication Instructions Recorded Confirmed Liothyronine Sodium 100 mcg PO DAILY 10/14/18 11/14/19 Metformin HCl [Fortamet] 500 mg PO DAILY 10/14/18 11/14/19 Omeprazole 40 mg PO DAILY 10/14/18 11/14/19 Albuterol Sulfate [Proair Hfa 1 - 2 puffs INH Q4H PRN 12/01/18 11/14/19 Inhaler] Benzonatate 1 - 2 cap PO TID PRN 12/01/18 11/14/19 Cetirizine [ZyrTEC] 10 mg PO DAILY 12/01/18 11/14/19 Cyclobenzaprine [Flexeril] 10 mg PO TID PRN 12/01/18 11/14/19 Fluticasone [Flonase] 1 sprays JEMIMA DAILY 12/01/18 11/14/19 Gabapentin 600 mg PO QDLUNCH 12/01/18 11/14/19 Gabapentin 900 mg PO BID 12/01/18 11/14/19 Ibuprofen 800 mg PO TID PRN 12/01/18 11/14/19 Montelukast [Singulair] 10 mg PO QPM 12/08/18 11/14/19 Mupirocin 1 applic TP TID #15 g 05/29/19 11/14/19 Ondansetron Odt [Zofran Odt] 4 mg TL Q6H PRN #10 tablet 09/28/19 11/14/19 Erythromycin Base [Erythromycin 1 film RIGHTEYE BID #1 oint...g. 11/14/19 Ophthalmic Ointment] Ketotifen Fumarate [Zaditor] 1 drops RIGHTEYE Q8H #1 bottle 11/19/19 Ofloxacin 0.3% Ophth Drops 1 - 2 drops RIGHTEYE Q4H #1 btl 11/19/19 [Ocuflox 0.3% Ophth Drops] - Allergies Allergies/Adverse Reactions: Allergies Allergy/AdvReac Type Severity Reaction Status Date / Time SHARMIN Inhibitors Allergy Unknown Verified 11/19/19 20:45 adhesive Allergy Unknown Verified 11/19/19 20:45 buspirone Allergy Unknown Verified 11/19/19 20:45 codeine Allergy Hives Verified 11/19/19 20:45 duloxetine [From Cymbalta] Allergy Unknown Verified 11/19/19 20:45 fluconazole [From Diflucan] Allergy Anaphylaxis Verified 11/19/19 20:45 morphine Allergy Unknown Verified 11/19/19 20:45 cephalexin [From Keflex] AdvReac Unknown Verified 11/19/19 20:45 Penicillins AdvReac Unknown Verified 11/19/19 20:45 sulfamethoxazole AdvReac Unknown Verified 11/19/19 20:45 [From Bactrim] trimethoprim [From Bactrim] AdvReac Unknown Verified 11/19/19 20:45 - Social History Does the pt smoke?: Yes Smoking Status: Current every day smoker Does the pt drink ETOH?: Yes Does the pt have substance abuse?: Yes - Immunizations Immunizations are current?: Yes - POLST Patient has POLST: No PD ED PE NORMAL - Vitals Vital signs reviewed: Yes - General General: Alert and oriented X 3, No acute distress - HEENT HEENT: PERRL, Moist mucous membranes, Other (Right eyelid erythema and swelling. There is yellow drainage from the eye. No fluorescein uptake. Eyelids everted. There are no parasites on the eye or eyelid.) - Derm Derm: Warm and dry - Neuro Neuro: Alert and oriented X 3 Results - Vitals Vitals: Vital Signs - 24 hr 11/19/19 20:45 Temperature 36.5 C Heart Rate 107 H Respiratory 16 Rate Blood Pressure 135/97 H O2 Saturation 100 Oxygen O2 Source Room air PD MEDICAL DECISION MAKING - ED course Complexity details: considered differential, d/w patient ED course: Patient with conjunctivitis and blepharitis. She has been picking excessively a t her eyelids. She was informed that there are no parasites and she needs to stop picking at her eye. We will place her on ophthalmic antibiotics as well as antihistamine eyedrops. She does not wear contacts. There are no corneal abrasions on fluorescein stain. Eyelids were everted. Patient counseled regarding signs and symptoms for which I believe and urgent re-evaluation would be necessary. Patient with good understanding of and agreement to plan and is comfortable going home at this time This document was made in part using voice recognition software. While efforts are made to proofread this document, sound alike and grammatical errors may occur. Departure - Departure Disposition: Home, Self Care Clinical Impression: Blepharitis of right eye Qualifiers: Blepharitis type: unspecified type Eyelid: both upper and lower Qualified Code(s): H01.00A - Unspecified blepharitis right eye, upper and lower eyelids Conjunctivitis Qualifiers: Conjunctivitis type: acute Acute conjunctivitis type: bacterial Laterality: right Qualified Code(s): H10.31 - Unspecified acute conjunctivitis, right eye Condition: Good Instructions: ED Conjunctivitis Nonspecific Follow-Up: Lona Hernandez ARNP [Primary Care Provider] - Within 3 Days Prescriptions: Ofloxacin 0.3% Ophth Drops [Ocuflox 0.3% Ophth Drops] 1 - 2 drops RIGHTEYE Q4H #1 btl Ketotifen Fumarate [Zaditor] 1 drops RIGHTEYE Q8H #1 bottle Comments: Return if you worsen. Follow up with your doctor within 3 days. Use the drops as prescribed. Discharge Date/Time: 11/19/19 21:23
== END 2019-11-19 21:23 | disposition home or self-care (01) ==
LOC: ED 20:40
DX: H01.00A Unspecified blepharitis right eye, upper and lower eyelids (principal); H10.31 Unspecified acute conjunctivitis, right eye; F15.90 Other stimulant use, unspecified, uncomplicated; I10 Essential (primary) hypertension; E11.9 Type 2 diabetes mellitus without complications; Z79.84 Long term (current) use of oral hypoglycemic drugs; F17.200 Nicotine dependence, unspecified, uncomplicated
CPT/HCPCS: 99282; 99283; J3490

== ENCOUNTER 2020-01-18 04:20 | Emergency (ER) | payer MEDICAID ==
--- NOTE | 2020-01-18 04:30 | ED Physician Documentation ---
History of Present Illness - Stated complaint Stated Complaint: FOOT SWELLING/EYE ITCH - History obtained from History obtained from: Patient - Additonal information Additional information: Patient is a 54-year-old female who presents with a chief complaint of refill of medication for headache chronic ulcer on her right great toe. Patient reports she has been prescribed doxycycline but she is run out of it and would like a refill on this prescription. She also thinks that she has pinkeye of the right eye.She denies any other complaints she denies any visual loss denies any history of corrective surgery such as. Deborah de leon denies any trauma to the eye denies any foreign body sensation to the she reports some yellow-greenish discharge of the right eye. Review of Systems Constitutional: reports: Reviewed and negative Eyes: reports: Discharge Ears: reports: Reviewed and negative Nose: reports: Reviewed and negative Throat: reports: Reviewed and negative Cardiac: reports: Reviewed and negative Respiratory: reports: Reviewed and negative GI: reports: Reviewed and negative : reports: Reviewed and negative Skin: reports: Lesions Musculoskeletal: reports: Reviewed and negative Neurologic: reports: Reviewed and negative Psychiatric: reports: Reviewed and negative Endocrine: reports: Reviewed and negative Immunocompromised: reports: Reviewed and negative PD PAST MEDICAL HISTORY - Past Medical History Cardiovascular: Hypertension Respiratory: Asthma, Sleep apnea Neuro: None Endocrine/Autoimmune: Type 2 diabetes, HyPOthyroidism GI: GERD 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 : Incontinence HEENT: Chronic sinusitis Psych: Depression, Anxiety, ADD/ADHD, Post traumatic stress disorder, Claustrophobia Musculoskeletal: Osteoarthritis, Fibromyalgia, Chronic back pain Derm: None, Other - Past Surgical History Past Surgical History: Yes General: Cholecystectomy /PRESCHOOL DIRECTOR: section - Present Medications Home Medications: Ambulatory Orders Medication Instructions Recorded Confirmed Liothyronine Sodium 100 mcg PO DAILY 10/14/18 11/14/19 Metformin HCl [Fortamet] 500 mg PO DAILY 10/14/18 11/14/19 Omeprazole 40 mg PO DAILY 10/14/18 11/14/19 Albuterol Sulfate [Proair Hfa 1 - 2 puffs INH Q4H PRN 12/01/18 11/14/19 Inhaler] Benzonatate 1 - 2 cap PO TID PRN 12/01/18 11/14/19 Cetirizine [ZyrTEC] 10 mg PO DAILY 12/01/18 11/14/19 Cyclobenzaprine [Flexeril] 10 mg PO TID PRN 12/01/18 11/14/19 Fluticasone [Flonase] 1 sprays JEMIMA DAILY 12/01/18 11/14/19 Gabapentin 600 mg PO QDLUNCH 12/01/18 11/14/19 Gabapentin 900 mg PO BID 12/01/18 11/14/19 Ibuprofen 800 mg PO TID PRN 12/01/18 11/14/19 Montelukast [Singulair] 10 mg PO QPM 12/08/18 11/14/19 Mupirocin 1 applic TP TID #15 g 05/29/19 11/14/19 Ondansetron Odt [Zofran Odt] 4 mg TL Q6H PRN #10 tablet 09/28/19 11/14/19 Erythromycin Base [Erythromycin 1 film RIGHTEYE BID #1 oint...g. 11/14/19 Ophthalmic Ointment] Ketotifen Fumarate [Zaditor] 1 drops RIGHTEYE Q8H #1 bottle 11/19/19 Ofloxacin 0.3% Ophth Drops 1 - 2 drops RIGHTEYE Q4H #1 btl 11/19/19 [Ocuflox 0.3% Ophth Drops] Doxycycline Hyclate 100 mg PO BID 7 Days #14 capsule 01/18/20 Erythromycin Base [Erythromycin 1 gm OP QID 7 Days #1 oint...g. 01/18/20 Ophthalmic Ointment] - Allergies Allergies/Adverse Reactions: Allergies Allergy/AdvReac Type Severity Reaction Status Date / Time SHARMIN Inhibitors Allergy Unknown Verified 01/18/20 04:31 adhesive Allergy Unknown Verified 01/18/20 04:31 buspirone Allergy Unknown Verified 01/18/20 04:31 codeine Allergy Hives Verified 01/18/20 04:31 duloxetine [From Cymbalta] Allergy Unknown Verified 01/18/20 04:31 fluconazole [From Diflucan] Allergy Anaphylaxis Verified 01/18/20 04:31 morphine Allergy Unknown Verified 01/18/20 04:31 cephalexin [From Keflex] AdvReac Unknown Verified 01/18/20 04:31 Penicillins AdvReac Unknown Verified 01/18/20 04:31 sulfamethoxazole AdvReac Unknown Verified 01/18/20 04:31 [From Bactrim] trimethoprim [From Bactrim] AdvReac Unknown Verified 11/19/19 20:45 - Social History Does the pt smoke?: Yes Smoking Status: Current every day smoker Does the pt drink ETOH?: Yes Does the pt have substance abuse?: Yes - Immunizations Immunizations are current?: Yes - POLST Patient has POLST: No PD ED PE NORMAL - Vitals Vital signs reviewed: Yes - General General: Alert and oriented X 3, No acute distress, Well developed/nourished - HEENT HEENT: Atraumatic, PERRL, EOMI, Ears normal, Moist mucous membranes, Pharynx benign, Other (There is some yellow clear discharge to the lateral portion of the right eye otherwise extraocular motions intact no preauricular lymphadenopathy no swelling around the eye.) - Neck Neck: Supple, no meningeal sign - Cardiac Cardiac: RRR, No murmur - Respiratory Respiratory: Clear bilaterally - Abdomen Abdomen: Normal bowel sounds, Soft, Non tender, Non distended - Derm Derm: Warm and dry, Other (There is a healing chronic ulcer over the right great toe with a small amount of surrounding erythema no fluctuance no induration no crepitus) - Extremities Extremities: No deformity, Other (There is a healing chronic ulcer over the right great toe with a small amount of surrounding erythema no fluctuance no induration no crepitus) - Neuro Neuro: Alert and oriented X 3 - Psych Psych: Normal mood, Normal affect - Free text exam Free text exam: Small chronic healing ulcer on the right great toe on the medial aspect no involvement of the of the plantar aspect. No fluctuance or induration or crepitus no streaking compartments are soft sensations intact light touch palpable DP and PT pulses no swelling of the leg. Results - Vitals Vitals: Vital Signs - 24 hr 01/18/20 04:28 Temperature 36.4 C L Heart Rate 106 H Respiratory 16 Rate Blood Pressure 133/110 H O2 Saturation 99 Oxygen O2 Source Room air PD MEDICAL DECISION MAKING - ED course Complexity details: considered differential (Conjunctivitis, cellulitis of the right toe) Departure - Departure Disposition: ED Elope Clinical Impression: Conjunctivitis Qualifiers: Conjunctivitis type: unspecified Laterality: right Qualified Code(s): H10.9 - Unspecified conjunctivitis Cellulitis Qualifiers: Site of cellulitis: extremity Site of cellulitis of extremity: toe Laterality: right Qualified Code(s): L03.031 - Cellulitis of right toe Condition: Stable Instructions: Conjunctivitis, Cellulitis Dc Follow-Up: Lona Hernandez ARNP [Primary Care Provider] - 01/18/20 Prescriptions: Doxycycline Hyclate 100 mg PO BID 7 Days #14 capsule Erythromycin Base [Erythromycin Ophthalmic Ointment] 1 gm OP QID 7 Days #1 oint...g. Comments: Follow-up with your primary care provider today.
[2020-01-18 04:31] VITALS: BP 133/110
[2020-01-18] MEDS ORDERED: ERYTHROMYCIN OPHTH OINT 1 GM TUBE RIGHTEYE STA (04:31)
[2020-01-18] MEDS ORDERED: DOXYCYCLINE 100 MG TABLET PO STA (04:32)
== END 2020-01-18 04:54 | disposition left against medical advice (07) ==
LOC: ED 04:20
DX: H10.9 Unspecified conjunctivitis (principal); L97.519 Non-pressure chronic ulcer of other part of right foot with unspecified severity; L03.031 Cellulitis of right toe; I10 Essential (primary) hypertension; J45.909 Unspecified asthma, uncomplicated; E11.9 Type 2 diabetes mellitus without complications; Z79.84 Long term (current) use of oral hypoglycemic drugs; F17.200 Nicotine dependence, unspecified, uncomplicated
CPT/HCPCS: 99282; 99284; A9270; J3490

== ENCOUNTER 2020-04-24 15:11 | Outpatient (CLI) | payer MEDICAID | END 2020-04-24 15:12 | disposition critical access hospital (66) | LOC: EMS 15:11 | PROVIDERS: ATTEND Surgery | DX: R56.9 Unspecified convulsions (principal) | CPT/HCPCS: A0425; A0427; A0999 ==

== ENCOUNTER 2020-04-24 15:31 | Emergency (ER) | payer MEDICAID ==
[2020-04-24 15:52] VITALS: BP 128/84
[2020-04-24] MEDS ORDERED: ACETAMINOPHEN 325 MG TABLET PO STA (18:21)
--- NOTE | 2020-04-24 20:27 | ED Physician Documentation ---
History of Present Illness - Stated complaint Stated Complaint: SZ - Chief complaint Chief Complaint: Neuro - History obtained from History obtained from: Patient - Additonal information Additional information: 55-year-old woman with history of polysubstance abuse and alcohol abuse presents with possible seizure, brought in by EMS with report that she herself called them saying she had had a seizure. On arrival to the ED she was tearful but alert and oriented x4, with mild slurring of speech. She states that she has not slept in over 24 hours and took Flexeril at 3 AM but denies any alcohol or substance use. Denies tongue biting, urinary or fecal incontinence. Denies fevers. Does endorse generalized body aches and chronic back pain. Review of Systems Ten Systems: 10 systems reviewed and negative Constitutional: reports: Myalgias. denies: Fever, Chills Neurologic: reports: Other (syncope vs. 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 - Present Medications Home Medications: Ambulatory Orders Medication Instructions Recorded Confirmed Liothyronine Sodium 100 mcg PO DAILY 10/14/18 11/14/19 Metformin HCl [Fortamet] 500 mg PO DAILY 10/14/18 11/14/19 Omeprazole 40 mg PO DAILY 10/14/18 11/14/19 Albuterol Sulfate [Proair Hfa 1 - 2 puffs INH Q4H PRN 12/01/18 11/14/19 Inhaler] Benzonatate 1 - 2 cap PO TID PRN 12/01/18 11/14/19 Cetirizine [ZyrTEC] 10 mg PO DAILY 12/01/18 11/14/19 Cyclobenzaprine [Flexeril] 10 mg PO TID PRN 12/01/18 11/14/19 Fluticasone [Flonase] 1 sprays JEMIMA DAILY 12/01/18 11/14/19 Gabapentin 600 mg PO QDLUNCH 12/01/18 11/14/19 Gabapentin 900 mg PO BID 12/01/18 11/14/19 Ibuprofen 800 mg PO TID PRN 12/01/18 11/14/19 Montelukast [Singulair] 10 mg PO QPM 12/08/18 11/14/19 Mupirocin 1 applic TP TID #15 g 05/29/19 11/14/19 Ondansetron Odt [Zofran Odt] 4 mg TL Q6H PRN #10 tablet 09/28/19 11/14/19 Erythromycin Base [Erythromycin 1 film RIGHTEYE BID #1 oint...g. 11/14/19 Ophthalmic Ointment] Ketotifen Fumarate [Zaditor] 1 drops RIGHTEYE Q8H #1 bottle 11/19/19 Ofloxacin 0.3% Ophth Drops 1 - 2 drops RIGHTEYE Q4H #1 btl 11/19/19 [Ocuflox 0.3% Ophth Drops] Doxycycline Hyclate 100 mg PO BID 7 Days #14 capsule 01/18/20 Erythromycin Base [Erythromycin 1 gm OP QID 7 Days #1 oint...g. 01/18/20 Ophthalmic Ointment] - Allergies Allergies/Adverse Reactions: Allergies Allergy/AdvReac Type Severity Reaction Status Date / Time SHARMIN Inhibitors Allergy Unknown Verified 01/18/20 04:31 adhesive Allergy Unknown Verified 01/18/20 04:31 buspirone Allergy Unknown Verified 01/18/20 04:31 codeine Allergy Hives Verified 01/18/20 04:31 duloxetine [From Cymbalta] Allergy Unknown Verified 01/18/20 04:31 fluconazole [From Diflucan] Allergy Anaphylaxis Verified 01/18/20 04:31 morphine Allergy Unknown Verified 01/18/20 04:31 cephalexin [From Keflex] AdvReac Unknown Verified 01/18/20 04:31 Penicillins AdvReac Unknown Verified 01/18/20 04:31 sulfamethoxazole AdvReac Unknown Verified 01/18/20 04:31 [From Bactrim] trimethoprim [From Bactrim] AdvReac Unknown Verified 11/19/19 20:45 - Social History Does the pt smoke?: Yes Smoking Status: Current every day smoker Does the pt drink ETOH?: Yes Does the pt have substance abuse?: Yes - Immunizations Immunizations are current?: Yes - POLST Patient has POLST: No PD ED PE NORMAL - Vitals Vital signs reviewed: Yes - General General: Alert and oriented X 3 - HEENT HEENT: Atraumatic, PERRL, EOMI, Other (No tongue biting) - Neck Neck: Supple, no meningeal sign - Cardiac Cardiac: RRR - Respiratory Respiratory: No respiratory distress, Clear bilaterally - Abdomen Abdomen: Non tender, Non distended - Female Female : Deferred - Rectal Rectal: Deferred - Back Back: No CVA TTP - Derm Derm: Normal color - Extremities Extremities: No deformity - Neuro Neuro: Alert and oriented X 3, 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 She had mild slurring of speech on arrival that improved during the observation period that she stayed here. She was ANO x4 with normal neurological exam. Did not appear postictal, did not have tongue biting urinary or fecal incontinence and does not have history of seizure. Patient denying alcohol or substance use, but does have a prior history in her chart. She does state that she has not slept in 24 hours. Denies SI/HI/AVH. After a short observation. She asked to go home and AMA paperwork was filled out reviewing the risks of leaving AGAINST MEDICAL ADVICE. Primary doctor was provided to her Dr. Howell. Patient was advised to take Tylenol as needed for body aches and for back pain. Departure - Departure Disposition: 07 Against Medical Advice Clinical Impression: Syncope, Polysubstance abuse Discharge Date/Time: 04/24/20 18:37
== END 2020-04-24 18:37 | disposition left against medical advice (07) ==
LOC: EDUNIT# → ED 15:31
DX: R55 Syncope and collapse (principal); F10.10 Alcohol abuse, uncomplicated; F19.10 Other psychoactive substance abuse, uncomplicated; M79.10 Myalgia, unspecified site; M54.9 Dorsalgia, unspecified; G89.29 Other chronic pain; G47.00 Insomnia, unspecified; I10 Essential (primary) hypertension; E11.9 Type 2 diabetes mellitus without complications; Z79.84 Long term (current) use of oral hypoglycemic drugs; F17.200 Nicotine dependence, unspecified, uncomplicated; Z53.20 Procedure and treatment not carried out because of patient's decision for unspecified reasons
CPT/HCPCS: 99283; 99284; A9270

== ENCOUNTER 2021-06-22 08:00 | Outpatient (CLI) | payer MEDICAID | END 2021-06-22 23:59 | disposition home or self-care (01) | LOC: LAB.S 08:00 | PROVIDERS: ATTEND Physician Assistant Medical | DX: H10.89 Other conjunctivitis (principal) | CPT/HCPCS: 87070; 87205 ==

== ENCOUNTER 2021-06-23 08:00 | Outpatient (CLI) | payer MEDICAID ==
[2021-06-23 19:00] LABS: BILIRUBIN,URINE NEGATIVE (NEGATIVE); GLUCOSE, URINE (UA) 500 mg/dL (NEGATIVE); KETONES,URINE (UA) NEGATIVE (NEGATIVE); LEUKOCYTE ESTERASE, URINE NEGATIVE (NEGATIVE); NITRITE,URINE POSITIVE (NEGATIVE); OCCULT BLOOD,URINE NEGATIVE (NEGATIVE); PH,URINE 5.5 PH (5.0-7.5); PROTEIN,URINE NEGATIVE (NEGATIVE); UROBILINOGEN,URINE 0.2 (NORMAL) E.U./dL (NORMAL)
[2021-06-23 19:11] LABS: CLARITY,URINE CLOUDY (CLEAR); RBC,URINE 0-5 /HPF (0-5); SQUAMOUS EPITHELIAL CELL,UR NONE SEEN (<= Few)
[2021-06-23 19:12] LABS: BACTERIA,URINE Many /HPF (None Seen)
== END 2021-06-23 23:59 | disposition home or self-care (01) ==
LOC: LAB.S 08:00
PROVIDERS: ATTEND Physician Assistant Medical
DX: R30.0 Dysuria (principal)
CPT/HCPCS: 81001; 87077; 87086; 87181

== ENCOUNTER 2021-09-24 14:47 | Outpatient (CLI) | payer MEDICAID ==
--- NOTE | 2021-09-24 17:55 | XRAY Report ---
PROCEDURE: Foot 2 View RT INDICATIONS: FOOT JOINT PAIN, RIGHT TECHNIQUE: 2 views of the foot were acquired. COMPARISON: None FINDINGS: Bones: There are postsurgical changes from remote amputation of the right great toe at the level of the metatarsophalangeal joint. Chronic appearing curvilinear ossification projects over the head of t he first metatarsal. Mild overlying soft tissue swelling. No soft tissue gas. No osseous erosions see n. Chronic appearing fracture/degenerative change involving the proximal interphalangeal joint of the right fifth toe. Prominent plantar calcaneal spur. Small retrocalcaneal spur. No acute fractures or dislocations. No suspicious bony lesions. Soft tissues: No tibiotalar joint effusion. Achilles tendon appears normal. IMPRESSION: 1. Right foot without acute fracture or dislocation. 2. Postsurgical changes from remote amputation of the right great toe at the level of the first metat arsophalangeal joint. 3. Soft tissue swelling overlying the first metatarsal without underlying osseous erosions or other s uspicious findings. 4. Plantar calcaneal and retrocalcaneal enthesopathy. 5. Chronic appearing fracture/degenerative change involving the proximal interphalangeal joint of the right toe. If there is continued clinical concern for pathology or occult fracture, consider follow-up imaging w ith advanced imaging (CT, MRI, bone scan) if symptoms persist. Reviewed by: Kamaljit Bender MD on 09/24/2021 5:54 PM PDT Approved by: Kamaljit Bender MD on 09/24/2021 5:54 PM PDT Station ID: [id number]
== END 2021-09-24 14:48 | disposition home or self-care (01) ==
LOC: DI.S 14:47
PROVIDERS: ATTEND Registered Nurse
DX: R93.6 Abnormal findings on diagnostic imaging of limbs (principal); R93.89 Abnormal findings on diagnostic imaging of other specified body structures; M77.51 Other enthesopathy of right foot and ankle; M19.071 Primary osteoarthritis, right ankle and foot; Z89.411 Acquired absence of right great toe

== ENCOUNTER 2021-12-04 09:10 | Outpatient (CLI) | payer MEDICAID ==
[2021-12-04 14:22] LABS: BASOPHILS % (AUTO) 0.6 %; EOSINOPHILS # (AUTO) 0.2 10^3/uL (0.0-0.7); EOSINOPHILS % (AUTO) 2.6 %; HCT - HEMATOCRIT 47.1 % (37.0-47.0); HGB - HEMOGLOBIN 15.3 g/dL (12.0-16.0); LYMPHOCYTES % (AUTO) 30.6 %; MEAN CORPUSCULAR HEMOGLOBIN 30.4 pg (27.0-31.0); MEAN CORPUSCULAR HGB CONC 32.5 g/dL (32.0-36.0); MEAN CORPUSCULAR VOLUME 93.6 fL (81.0-99.0); MEAN PLATELET VOLUME 10.5 fL (7.9-10.8); MONOCYTES # (AUTO) 0.5 10^3/uL (0.0-1.0); MONOCYTES % (AUTO) 7.2 %; NEUTROPHILS # (AUTO) 3.9 10^3/uL (1.5-6.6); NEUTROPHILS % (AUTO) 58.7 %; PLT - PLATELET COUNT 256 10^3/uL (130-450); RED BLOOD COUNT 5.03 10^6/uL (4.20-5.40); RED CELL DISTRIBUTION WIDTH 14.2 % (12.0-15.0); WHITE BLOOD COUNT 6.6 x10^3/uL (4.8-10.8)
[2021-12-04 14:49] LABS: ALBUMIN 4.2 g/dL (3.2-5.5); ALBUMIN/GLOBULIN RATIO 1.2 (1.0-2.2); ALKALINE PHOSPHATASE 77 IU/L (42-121); ALT ALANINE AMINOTRANSFERASE 17 IU/L (10-60); AST ASPARTATE AMINOTRANSFERASE 22 IU/L (10-42); BILIRUBIN,TOTAL 0.6 mg/dL (0.2-1.0); BUN - BLOOD UREA NITROGEN 16 mg/dL (6-20); CALCIUM 9.3 mg/dL (8.5-10.3); CARBON DIOXIDE - CO2 27 mmol/L (21-32); CHLORIDE 102 mmol/L (101-111); CHOL/HDL RATIO 5.2 (<4.4); CHOLESTEROL 253 mg/dL; CREATININE 0.7 mg/dL (0.4-1.0); GFR - MDRD 87 (>89); GLUCOSE 221 mg/dL (70-100); HDL CHOLESTEROL 49 mg/dL; LDL CHOLESTEROL,CALCULATED 172 mg/dL; LDL/HDL RATIO 3.5 (<4.4); POTASSIUM 4.1 mmol/L (3.5-5.0); SODIUM 136 mmol/L (135-145); TOTAL PROTEIN 7.6 g/dL (6.7-8.2); TRIGLYCERIDES 162 mg/dL; VLDL CHOLESTEROL 32 mg/dL
[2021-12-04 14:56] LABS: FREE T3 3.13 pg/mL (2.5-3.9); FREE T4 (FREE THYROXINE) 0.57 ng/dL (0.58-1.64)
[2021-12-04 15:20] LABS: CREATININE,URINE 256.3 mg/dL; MICROALBUMIN,URINE 1.8 mg/dL (0-300.0)
[2021-12-04 15:58] LABS: THYROID STIMULATING HORMONE 86.03 uIU/mL (0.34-5.60)
[2021-12-04 20:52] LABS: ESTIMATED AVERAGE GLUCOSE 255 mg/dL (70-100); HEMOGLOBIN A1c% 10.5 % (4.27-6.07)
== END 2021-12-04 09:11 | disposition home or self-care (01) ==
LOC: LAB.S 09:10
PROVIDERS: ATTEND Registered Nurse
DX: E88.81 Metabolic syndrome and other insulin resistance (principal); Z13.220 Encounter for screening for lipoid disorders; E11.8 Type 2 diabetes mellitus with unspecified complications; Z13.29 Encounter for screening for other suspected endocrine disorder; Z13.0 Encounter for screening for diseases of the blood and blood-forming organs and certain disorders involving the immune mechanism
CPT/HCPCS: 36415; 80053; 80061; 82043; 82570; 83036; 83721; 84439; 84443; 84481; 85025

== ENCOUNTER 2023-01-26 07:21 | Outpatient (CLI) | payer MEDICAID | END 2023-01-26 07:22 | disposition EMS.NT | LOC: EMS 07:21 | DX: T63.441A Toxic effect of venom of bees, accidental (unintentional), initial encounter (principal) ==

== ENCOUNTER 2023-07-07 13:06 | Outpatient (CLI) | payer MEDICAID | END 2023-07-07 13:07 | disposition critical access hospital (66) | LOC: EMS 13:06 | DX: R10.9 Unspecified abdominal pain (principal); M54.9 Dorsalgia, unspecified; R60.0 Localized edema | CPT/HCPCS: A0425; A0429; A0999 ==

== ENCOUNTER 2023-07-07 13:27 | Emergency (ER) | payer MEDICAID ==
--- NOTE | 2023-07-07 14:11 | XRAY Report ---
PROCEDURE: Ribs w/PA Chest 3+V LT INDICATIONS: L rib pain s/p arm pull 2 weeks ago TECHNIQUE: 2 views of the ribs were acquired, along with a single view chest. COMPARISON: None. FINDINGS: Surgical changes and devices: None. Bones and chest wall: No fractures or dislocations. No suspicious bony lesions. Overlying soft tis sues appear unremarkable. Lungs and pleura: No pleural effusions or pneumothorax. Mild diffuse reticulonodular pulmonary opaci ty. Mediastinum: Mediastinal contours appear normal. Heart size is normal. IMPRESSION: 1. Mild atypical pneumonia. 2. No acute fracture. No osseous lesion. If symptoms and/or clinical suspicion for pathology continue , further assessment with repeat plain films, or advanced imaging (e.g., CT, MRI, or bone scan) is re commended for further assessment. Reviewed by: America Hughes MD on 07/07/2023 2:09 PM PST Approved by: America Hughes MD on 07/07/2023 2:09 PM PST Station ID: [id number]
[2023-07-07 14:30] VITALS: O2SAT 94
--- NOTE | 2023-07-07 14:33 | ED Physician Documentation ---
History of Present Illness - Stated complaint Stated Complaint: L FLANK PX - Chief complaint Chief Complaint: General - History obtained from History obtained from: Patient - History of Present Illness Timing: How many weeks ago (2) - Additonal information Additional information: Patient is a 58-year-old female who presents to the emergency department with left-sided rib pain. Ongoing for the past 2 weeks. She states it started after her arm was caught on a freezer door while she was on her scooter and her arm was pulled backwards. Worse with movement, better with rest. No cough. No congestion. No fevers. No chills. 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 : Incontinence HEENT: Chronic sinusitis Psych: Depression, Anxiety, ADD/ADHD, Post traumatic stress disorder, Claustrophobia Musculoskeletal: Osteoarthritis, Fibromyalgia, Chronic back pain Derm: None, Other - Past Surgical History Past Surgical History: Yes General: Cholecystectomy /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: section - Present Medications Home Medications: Ambulatory Orders Medication Instructions Recorded Confirmed Albuterol Sulfate [Proair Hfa 1 - 2 puffs INH Q4H PRN 12/01/18 07/07/23 Inhaler] Acetaminophen [Tylenol] 650 mg PO HS 07/07/23 07/07/23 Empagliflozin [Jardiance] 10 mg ORAL DAILY 07/07/23 07/07/23 Furosemide [Lasix] 20 mg PO DAILY 07/07/23 07/07/23 Ibuprofen [Motrin] 600 mg PO HS 07/07/23 07/07/23 Omeprazole Magnesium 20 mg PO DAILY 07/07/23 07/07/23 Pregabalin 25 mg PO BID 07/07/23 07/07/23 metFORMIN [Glucophage] 1,000 mg PO BIDWM 07/07/23 07/07/23 - Allergies Allergies/Adverse Reactions: Allergies Allergy/AdvReac Type Severity Reaction Status Date / Time SHARMIN Inhibitors Allergy Unknown Verified 07/07/23 13:36 adhesive Allergy Unknown Verified 07/07/23 13:36 buspirone Allergy Unknown Verified 07/07/23 13:36 codeine Allergy Hives Verified 07/07/23 13:36 duloxetine [From Cymbalta] Allergy Unknown Verified 07/07/23 13:36 fluconazole [From Diflucan] Allergy Anaphylaxis Verified 07/07/23 13:36 morphine Allergy Unknown Verified 07/07/23 13:36 cephalexin [From Keflex] AdvReac Unknown Verified 07/07/23 13:36 Penicillins AdvReac Unknown Verified 07/07/23 13:36 sulfamethoxazole AdvReac Unknown Verified 07/07/23 13:36 [From Bactrim] trimethoprim [From Bactrim] AdvReac Unknown Verified 07/07/23 13:36 - Social History Does the pt smoke?: Yes Smoking Status: Current every day smoker Does the pt drink ETOH?: No Does the pt have substance abuse?: No - Immunizations Immunizations are current?: Yes - POLST Patient has POLST: No PD ED PE NORMAL - Vitals Vital signs reviewed: Yes - General General: Alert and oriented X 3, No acute distress - HEENT HEENT: Moist mucous membranes - Neck Neck: Supple, no meningeal sign - Cardiac Cardiac: RRR, Strong equal pulses - Respiratory Respiratory: No respiratory distress, Clear bilaterally, Other (Mild diffuse tenderness over the left posterior ribs. No crepitus. No ecchymosis. No skin changes.) - Abdomen Abdomen: Soft, Non tender, Non distended - Derm Derm: Warm and dry - Neuro Neuro: Alert and oriented X 3 - Psych Psych: Normal mood, Normal affect Results - Vitals Vitals: Vital Signs - 24 hr 07/07/23 07/07/23 07/07/23 13:37 14:21 15:03 Temperature 36 C L 36.2 C L Heart Rate 78 72 77 Respiratory 14 22 18 Rate Blood Pressure 170/94 H 151/82 H 158/89 H O2 Saturation 99 94 94 Oxygen O2 Source Room air - Rads (name of study) Left rib x-ray Relevant Findings:: Final report received, See rad report PD Medical Decision Making - ED course Complexity details: reviewed results, re-evaluated patient, considered differential, d/w patient ED course: No acute findings on rib x-ray. Read as a possible mild atypical pneumonia, ever dominguez does not have any fever, cough or evidence of pneumonia. Appears to have a intercostal muscle strain. She declines any pain medication here. She is very well-appearing, nontoxic. Afebrile. No hypoxia. No respiratory distress. Patient counseled regarding signs and symptoms for which I believe and urgent re-evaluation would be necessary. Patient with good understanding of and agreement to plan and is comfortable going home at this time This document was made in part using voice recognition software. While efforts are made to proofread this document, sound alike and grammatical errors may occur. Departure - Departure Disposition: 01 Home, Self Care Clinical Impression: Intercostal muscle strain Qualifiers: Encounter type: initial encounter Qualified Code(s): S29.011A - Strain of muscle and tendon of front wall of thorax, initial encounter Condition: Good Instructions: ED Strain Muscle Ext Follow-Up: your,doctor in 1 week [Other] Comments: Please follow-up with your doctor for further care. Please return if you worsen. Your x-ray does not show any acute fractures today. You did state that you are very sleepy during the day, you may have sleep apnea and your doctor can order a sleep study for you. You appear to have a strain of your chest wall today. This can take several weeks to heal. Forms: PCP List Discharge Date/Time: 07/07/23 15:30
[2023-07-07 15:10] VITALS: BP 158/89
== END 2023-07-07 15:30 | disposition home or self-care (01) ==
LOC: EDUNIT# → ED 13:27
DX: S29.011A Strain of muscle and tendon of front wall of thorax, initial encounter (principal); W23.1XXA Caught, crushed, jammed, or pinched between stationary objects, initial encounter; Y93.I9 Activity, other involving external motion; I10 Essential (primary) hypertension; E11.9 Type 2 diabetes mellitus without complications; Z79.84 Long term (current) use of oral hypoglycemic drugs; F17.200 Nicotine dependence, unspecified, uncomplicated
CPT/HCPCS: 99283

== ENCOUNTER 2023-08-12 12:39 | Outpatient (CLI) | payer MEDICAID | END 2023-08-12 23:59 | disposition critical access hospital (66) | LOC: EMS 12:39 | DX: R07.9 Chest pain, unspecified (principal); R07.1 Chest pain on breathing; R05.9 Cough, unspecified | CPT/HCPCS: A0425; A0429; A0999 ==

== ENCOUNTER 2023-08-12 13:11 | Emergency (ER) | payer MEDICAID ==
--- NOTE | 2023-08-12 13:26 | ED Physician Documentation ---
History of Present Illness - Stated complaint Stated Complaint: COUGH - History obtained from History obtained from: Patient, EMS - Additonal information Additional information: The patient is brought to the emergency department by EMS from the [facility] for chief complaint of cough and central chest pain. The patient states she has been having the pain for about the last 2 months ever since she caught her left arm in a freezer door while riding a motorized shopping cart at the store and pulled a muscle in her chest wall. The patient states that the pain has just continued to be there since and that whenever she takes a deep breath or cough, it hurts. The patient denies any fevers or chills. She states she has some deep congestion in her chest that she cannot seem to cough out. She states her normal smoker's cough is worse than usual. She denies any new shortness of breath. No new swelling in her legs. No changes in her medications or any new medical problems since the last time she was seen here. No other complaints at this time. 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 - Present Medications Home Medications: Ambulatory Orders Medication Instructions Recorded Confirmed Albuterol Sulfate [Proair Hfa 1 - 2 puffs INH Q4H PRN 12/01/18 07/07/23 Inhaler] Acetaminophen [Tylenol] 650 mg PO HS 07/07/23 07/07/23 Empagliflozin [Jardiance] 10 mg ORAL DAILY 07/07/23 07/07/23 Furosemide [Lasix] 20 mg PO DAILY 07/07/23 07/07/23 Ibuprofen [Motrin] 600 mg PO HS 07/07/23 07/07/23 Omeprazole Magnesium 20 mg PO DAILY 07/07/23 07/07/23 Pregabalin 25 mg PO BID 07/07/23 07/07/23 metFORMIN [Glucophage] 1,000 mg PO BIDWM 07/07/23 07/07/23 Azithromycin [Zithromax] 0 mg PO DAILY #6 tablet 08/12/23 - Allergies Allergies/Adverse Reactions: Allergies Allergy/AdvReac Type Severity Reaction Status Date / Time SHARMIN Inhibitors Allergy Unknown Verified 08/12/23 13:21 adhesive Allergy Unknown Verified 08/12/23 13:21 buspirone Allergy Unknown Verified 08/12/23 13:21 codeine Allergy Hives Verified 08/12/23 13:21 duloxetine [From Cymbalta] Allergy Unknown Verified 08/12/23 13:21 fluconazole [From Diflucan] Allergy Anaphylaxis Verified 08/12/23 13:21 morphine Allergy Unknown Verified 08/12/23 13:21 cephalexin [From Keflex] AdvReac Unknown Verified 08/12/23 13:21 Penicillins AdvReac Unknown Verified 08/12/23 13:21 sulfamethoxazole AdvReac Unknown Verified 08/12/23 13:21 [From Bactrim] trimethoprim [From Bactrim] AdvReac Unknown Verified 08/12/23 13:21 - Social History Does the pt smoke?: Yes Smoking Status: Current every day smoker Does the pt drink ETOH?: No Does the pt have substance abuse?: No - Immunizations Immunizations are current?: Yes - POLST Patient has POLST: No PD ED PE NORMAL - Vitals Vital signs reviewed: Yes - General General: Alert and oriented X 3, No acute distress, Well developed/nourished - HEENT HEENT: Atraumatic, PERRL, EOMI, Moist mucous membranes - Neck Neck: Supple, no meningeal sign - Cardiac Cardiac: RRR, No murmur - Respiratory Respiratory: No respiratory distress, Clear bilaterally, Other (Moderate cough worse with expiration on lung exam. Audible congestion, patient is able to cough out some white mucus.) - Abdomen Abdomen: Soft, Non tender, Non distended - Derm Derm: Normal color, Warm and dry, No rash - Extremities Extremities: No deformity, No edema - Neuro Neuro: Alert and oriented X 3 - Psych Psych: Normal mood, Normal affect Results - Vitals Vitals: Oxygen O2 Source Room air - EKG (time done) 1355 EKG releavant findings:: EKG personally interpreted by author of this note. Relevant findings are: Rate: Rate (enter#) (72) Rhythm: NSR [place]: Normal Intervals: Normal [place] QRS: Normal Ischemia: Normal ST segments, Non specific changes Compare to prior EKG: Old EKG unavailable - Rads (name of study) CXR Relevant Findings:: Final report received, See rad report (bibasilar patchy infiltrates) PD Medical Decision Making - ED course Complexity details: reviewed results, re-evaluated patient, considered differential, d/w patient ED course: The patient was worked up with chest x-ray and EKG and given a dose of Decadron. Her x-ray showed a small infiltrate, and she was given antibiotics for this. EKG was unremarkable. I have prescribed prednisone and abx, and we have disc ussed the need for follow-up and the usual indications for return. Departure - Departure Disposition: 01 Home, Self Care Clinical Impression: Pneumonia Qualifiers: Pneumonia type: due to unspecified organism Laterality: bilateral Lung location : lower lobe of lung Qualified Code(s): J18.9 - Pneumonia, unspecified organism Condition: Stable Instructions: ED Pneumonia Adult Prescriptions: Azithromycin [Zithromax] 0 mg PO DAILY #6 tablet Comments: Your EKG looks good. Your chest x-ray shows possible mild pneumonia in the bottoms of both lungs, and you have been started on antibiotics for this. A prescription for your antibiotics has been electronically transmitted to the [facility] pharmacy in [place], your pharmacy of choice on record. Please pick this up and take your next dose of antibiotics tomorrow. Forms: PCP List Discharge Date/Time: 08/12/23 16:03
[2023-08-12] MEDS: DEXAMETHASONE 10 MG/ML VIAL IM STA (13:47)
--- NOTE | 2023-08-12 13:47 | XRAY Report ---
PROCEDURE: Chest 1V INDICATIONS: chest pain TECHNIQUE: One view of the chest was acquired. COMPARISON: Chest radiograph on July 07, 2023. FINDINGS: Surgical changes and devices: None. Lungs and pleura: No pleural effusions or pneumothorax. Bibasilar patchy consolidation. Mediastinum: Mediastinal contours appear normal. Heart size is mildly enlarged. Bones and chest wall: No suspicious bony lesions. Overlying soft tissues appear unremarkable. IMPRESSION: 1.Bibasilar patchy consolidation which may reflect atelectasis, aspiration and/or pneumonia. 2.Mild cardiomegaly, stable, accounting for differences in technique compared to prior exam. Reviewed by: Sangita Sanchez MD on 08/12/2023 1:46 PM PDT Approved by: Sangita Sanchez MD on 08/12/2023 1:46 PM PDT Station ID: [id number]
[2023-08-12] MEDS ORDERED: cefTRIAXone 1 GM VIAL IM STA (14:19)
[2023-08-12] MEDS: LIDOCAINE 1% 2 ML VIAL MC ONE (15:05)
[2023-08-12] MEDS: AZITHROMYCIN 250 MG TABLET PO STA (15:05)
[2023-08-12] MEDS: cefTRIAXone 1 GM VIAL IM STA (15:05)
[2023-08-12 16:06] VITALS: BP 152/78; O2SAT 99
== END 2023-08-12 16:03 | disposition home or self-care (01) ==
LOC: EDUNIT# → ED 13:11
DX: J18.9 Pneumonia, unspecified organism (principal); F17.200 Nicotine dependence, unspecified, uncomplicated
CPT/HCPCS: 71045; 93005; 96372; 99284; A9270

== ENCOUNTER 2023-09-29 14:14 | Outpatient (CLI) | payer MEDICAID | END 2023-09-29 23:14 | disposition critical access hospital (66) | LOC: EMS 14:14 | DX: E11.65 Type 2 diabetes mellitus with hyperglycemia (principal) | CPT/HCPCS: A0425; A0429; A0999 ==

== ENCOUNTER 2023-09-29 14:55 | Emergency (ER) | payer MEDICAID ==
--- NOTE | 2023-09-29 15:04 | ED Physician Documentation ---
History of Present Illness - Stated complaint Stated Complaint: HIGH BLOOD SUGAR - History obtained from History obtained from: Patient, EMS - Additonal information Additional information: 58-year-old woman presents from the detention. She says that she had a narcoleptic attack and could not be aroused. Now she is wide-awake. She is somewhat upset that she is here. She was noted to be hyperglycemic to the 350 range for EMS and was brought in mostly for that now. She has not been compliant with her Jardiance or metformin because she says the medications are too far down in her bag. She was recently diagnosed with lice and already has the lice treatments. 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 - Present Medications Home Medications: Ambulatory Orders Medication Instructions Recorded Confirmed Albuterol Sulfate [Proair Hfa 1 - 2 puffs INH Q4H PRN 12/01/18 07/07/23 Inhaler] Acetaminophen [Tylenol] 650 mg PO HS 07/07/23 07/07/23 Empagliflozin [Jardiance] 10 mg ORAL DAILY 07/07/23 07/07/23 Furosemide [Lasix] 20 mg PO DAILY 07/07/23 07/07/23 Ibuprofen [Motrin] 600 mg PO HS 07/07/23 07/07/23 Omeprazole Magnesium 20 mg PO DAILY 07/07/23 07/07/23 Pregabalin 25 mg PO BID 07/07/23 07/07/23 metFORMIN [Glucophage] 1,000 mg PO BIDWM 07/07/23 07/07/23 Azithromycin [Zithromax] 0 mg PO DAILY #6 tablet 08/12/23 - Allergies Allergies/Adverse Reactions: Allergies Allergy/AdvReac Type Severity Reaction Status Date / Time SHARMIN Inhibitors Allergy Unknown Verified 09/29/23 15:06 adhesive Allergy Unknown Verified 09/29/23 15:06 buspirone Allergy Unknown Verified 09/29/23 15:06 codeine Allergy Hives Verified 09/29/23 15:06 duloxetine [From Cymbalta] Allergy Unknown Verified 09/29/23 15:06 fluconazole [From Diflucan] Allergy Anaphylaxis Verified 09/29/23 15:06 morphine Allergy Unknown Verified 09/29/23 15:06 cephalexin [From Keflex] AdvReac Unknown Verified 09/29/23 15:06 Penicillins AdvReac Unknown Verified 09/29/23 15:06 sulfamethoxazole AdvReac Unknown Verified 09/29/23 15:06 [From Bactrim] trimethoprim [From Bactrim] AdvReac Unknown Verified 09/29/23 15:06 - Social History Does the pt smoke?: Yes Smoking Status: Current every day smoker Does the pt drink ETOH?: No Does the pt have substance abuse?: No - Immunizations Immunizations are current?: Yes - POLST Patient has POLST: No PD ED PE NORMAL - Vitals Vital signs reviewed: Yes - General General: Alert and oriented X 3, No acute distress - Respiratory Respiratory: No respiratory distress - Neuro Neuro: Alert and oriented X 3, Normal speech - Psych Psych: Normal mood, Normal affect Results - Vitals Vitals: Vital Signs - 24 hr 09/29/23 15:02 Temperature 36.5 C Heart Rate 75 Respiratory 16 Rate Blood Pressure 140/78 H O2 Saturation 99 Oxygen O2 Source Room air - Labs Labs: Laboratory Tests 09/29/23 15:05 Urine Opiates Screen NEGATIVE Ur Buprenorphine Scrn NEGATIVE Ur Oxycodone Screen NEGATIVE Urine Methadone Screen NEGATIVE Ur Barbiturates Screen NEGATIVE Ur Tricyclics Screen NEGATIVE Ur Phencyclidine Scrn NEGATIVE Ur Amphetamine Screen NEGATIVE U Methamphetamines Scrn NEGATIVE U Benzodiazepines Scrn NEGATIVE Urine Cocaine Screen NEGATIVE U Cannabinoids Screen NEGATIVE Ur Drug Screen Comment CUTOFF CONC BELOW: PD Medical Decision Making - ED course ED course: She presents after a narcoleptic attack. Now she is hyperglycemic. She does not appear to be in DKA and I do not see any medical emergency. She is administered her metformin. She would like a drug test to be run "so they do not lump me in with those fentanyl abusers because I was sleepy." Departure - Departure Disposition: 01 Home, Self Care Clinical Impression: Hyperglycemia, Lice, Narcolepsy Condition: Good Record reviewed to determine appropriate education?: Yes Instructions: ED Hyperglycemia Diabetic, ED Lice Head Comments: You were seen today because as you told me, you had a narcoleptic attack today and they could not arouse you. Obviously you are awake now and your blood sugars on the high side because you have not been taking your diabetes medications. Please take your diabetes medications as prescribed. You did request a drug screen and this is being processed. Call your doctor to arrange a follow-up appointment, make the next available appointment. In the interim, return anytime if worse or if new symptoms develop. Forms: PCP List Discharge Date/Time: 09/29/23 15:28
[2023-09-29 15:08] VITALS: BP 140/78; O2SAT 99
[2023-09-29] MEDS: metFORMIN 500 MG TABLET PO STA (15:12)
[2023-09-29 15:54] LABS: AMPHETAMINE SCREEN,URINE NEGATIVE (NEGATIVE); BARBITURATE SCREEN,UR NEGATIVE (NEGATIVE); BENZODIAZEPINES SCREEN, URINE NEGATIVE (NEGATIVE); BUPRENORPHINE SCREEN, URINE NEGATIVE (NEGATIVE); COCAINE SCREEN URINE NEGATIVE (NEGATIVE); METHADONE SCREEN, URINE NEGATIVE (NEGATIVE); METHAMPHETAMINES SCREEN, URINE NEGATIVE (NEGATIVE); OPIATE SCREEN, URINE NEGATIVE (NEGATIVE); OXYCODONE SCREEN, URINE NEGATIVE (NEGATIVE); THC CANNABINOID SCREEN, URINE NEGATIVE (NEGATIVE); TRICYCLIC ANTIDEPRESSANT,URINE NEGATIVE (NEGATIVE)
== END 2023-09-29 15:28 | disposition home or self-care (01) ==
LOC: EDUNIT# → ED 14:55
DX: E11.65 Type 2 diabetes mellitus with hyperglycemia (principal); G47.419 Narcolepsy without cataplexy; B85.2 Pediculosis, unspecified; I10 Essential (primary) hypertension; E03.9 Hypothyroidism, unspecified; G47.30 Sleep apnea, unspecified; J45.909 Unspecified asthma, uncomplicated; M79.7 Fibromyalgia; Z79.84 Long term (current) use of oral hypoglycemic drugs; Z79.899 Other long term (current) drug therapy; F17.200 Nicotine dependence, unspecified, uncomplicated
CPT/HCPCS: 80306; 99283; A9270

== ENCOUNTER 2023-10-26 11:53 | Outpatient (CLI) | payer MEDICAID | END 2023-10-26 11:54 | disposition home or self-care (01) | LOC: LAB.S 11:53 | PROVIDERS: ATTEND Registered Nurse | DX: E11.8 Type 2 diabetes mellitus with unspecified complications (principal) | CPT/HCPCS: 36415; 80053; 80061; 82043; 82570; 83036; 83721; 84436; 84443; 84480; 85025 ==

== ENCOUNTER 2023-11-11 17:53 | Outpatient (CLI) | payer MEDICAID | END 2023-11-11 23:59 | disposition EMS.NT | LOC: EMS 17:53 | DX: M79.671 Pain in right foot (principal) ==

== ENCOUNTER 2023-11-12 13:41 | Outpatient (CLI) | payer MEDICAID | END 2023-11-12 23:59 | disposition short-term general hospital (02) | LOC: EMS 13:41 | DX: R10.31 Right lower quadrant pain (principal); R10.32 Left lower quadrant pain; M54.2 Cervicalgia; M25.511 Pain in right shoulder; W07.XXXA Fall from chair, initial encounter; Y92.89 Other specified places as the place of occurrence of the external cause | CPT/HCPCS: A0425; A0428; A0999 ==

== ENCOUNTER 2023-12-05 15:34 | Outpatient (CLI) | payer MEDICAID | END 2023-12-05 23:59 | disposition left against medical advice (07) | LOC: EMS 15:34 | DX: R42 Dizziness and giddiness (principal); E11.65 Type 2 diabetes mellitus with hyperglycemia; R61 Generalized hyperhidrosis; R23.2 Flushing; R60.0 Localized edema ==

== ENCOUNTER 2024-01-15 10:12 | Emergency (ER) | payer MEDICAID ==
--- NOTE | 2024-01-15 11:51 | ED Physician Documentation ---
History of Present Illness - Stated complaint Stated Complaint: RT EAR PX,THROAT PX - Chief complaint Chief Complaint: Heent - History obtained from History obtained from: Patient - History of Present Illness Timing: Prior to arrival - Additonal information Additional information: Patient is a 58-year-old female who presents to the emergency department. She has been in the emergency department 5 times within the last 3 months. Patient has reports of new right ear pain. She notes symptoms started about 2 days ago. She has been struggling with tooth pain as well with history of poor oral dentition. She notes that pain has been going on for multiple weeks but right ear pain only developed over the last 2 days. She denies any fevers associated with her symptoms but has concerns for discharge from her right ear. She denies any trauma to the area, but feels it is swollen and extremely painful for her. 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 - Present Medications Home Medications: Ambulatory Orders Medication Instructions Recorded Confirmed Albuterol Sulfate [Proair Hfa 1 - 2 puffs INH Q4H PRN 12/01/18 07/07/23 Inhaler] Acetaminophen [Tylenol] 650 mg PO HS 07/07/23 07/07/23 Empagliflozin [Jardiance] 10 mg ORAL DAILY 07/07/23 07/07/23 Furosemide [Lasix] 20 mg PO DAILY 07/07/23 07/07/23 Ibuprofen [Motrin] 600 mg PO HS 07/07/23 07/07/23 Omeprazole Magnesium 20 mg PO DAILY 07/07/23 07/07/23 Pregabalin 25 mg PO BID 07/07/23 07/07/23 metFORMIN [Glucophage] 1,000 mg PO BIDWM 07/07/23 07/07/23 Azithromycin [Zithromax] 0 mg PO DAILY #6 tablet 08/12/23 - Allergies Allergies/Adverse Reactions: Allergies Allergy/AdvReac Type Severity Reaction Status Date / Time SHARMIN Inhibitors Allergy Unknown Verified 01/15/24 10:23 adhesive Allergy Unknown Verified 01/15/24 10:23 buspirone Allergy Unknown Verified 01/15/24 10:23 codeine Allergy Hives Verified 01/15/24 10:23 duloxetine [From Cymbalta] Allergy Unknown Verified 01/15/24 10:23 fluconazole [From Diflucan] Allergy Anaphylaxis Verified 01/15/24 10:23 levetiracetam Allergy Anaphylaxis Verified 01/15/24 10:24 morphine Allergy Unknown Verified 01/15/24 10:23 cephalexin [From Keflex] AdvReac Unknown Verified 01/15/24 10:23 Penicillins AdvReac Unknown Verified 01/15/24 10:23 sulfamethoxazole AdvReac Unknown Verified 01/15/24 10:23 [From Bactrim] trimethoprim [From Bactrim] AdvReac Unknown Verified 01/15/24 10:23 - Social History Does the pt smoke?: Yes Smoking Status: Current every day smoker Does the pt drink ETOH?: No Does the pt have substance abuse?: No - Immunizations Immunizations are current?: Yes - POLST Patient has POLST: No PD ED PE NORMAL - Vitals Vital signs reviewed: Yes - General General: Alert and oriented X 3 - HEENT HEENT: Atraumatic, PERRL, EOMI, Moist mucous membranes, Pharynx benign, Other (Right sided erythema to tympanic membrane with right sided bulging. No significant mastoid tenderness. No swelling or erythema to mastoid. Tragal motion tenderness on examination as well. Left ear shows mild erythema to the tympanic membrane no significant cerumen appreciated. No palpable adenop) - Cardiac Cardiac: RRR, No murmur, No gallop, No rub - Respiratory Respiratory: No respiratory distress, Clear bilaterally - Neuro Neuro: Alert and oriented X 3 Results - Vitals Vitals: Vital Signs - 24 hr 01/15/24 10:24 Temperature 36.7 C Heart Rate 82 Respiratory 16 Rate Blood Pressure 121/99 H O2 Saturation 99 Oxygen O2 Source Room air PD Medical Decision Making - ED course Complexity details: reviewed old records, reviewed results, re-evaluated patient ED course: Patient is a 58-year-old female presenting to the emergency department with right ear pain. Symptoms have been going on for approximately 2 days. Patient has significant pain to the inside of her right ear. Patient also has known poor oral dentition and a mild sore throat. She notes oral dentition has been going on for a few weeks and she needs to follow-up with the surgeon in the outpatient setting as no dentist she has seen is willing to fix her teeth in town. Patient denies any worsening tooth pain but notes her right ear began hurting about 2 days ago. She is concerned as she thought she had some discharge from it. Vitals are stable on arrival. Physical exam shows no obvious swelling. Reproducible tenderness to tragal motion of right ear but no significant mastoid tenderness. Right ear does show some bulging to tympanic membrane with erythema. Left ear also shows tympanic membrane erythema but no significant bulging. Patient has significant pain on examination. No significant adenopathy on examination. Given right ear pain and erythema we will give course of antibiotics. Patient has history of allergies to cephalosporins and penicillins. Will give short course of azithromycin for his symptoms. Patient given Tylenol here in the emergency department for pain control. Patient agreeable with this plan, will return with any swelling to mastoid, redness or warmth to the area. Departure - Departure Disposition: 01 Home, Self Care Clinical Impression: Right otitis media, Acute ear pain, Dental caries Condition: Good Instructions: ED Tooth Pain, ED Otitis Media Serous Adult Comments: You were seen here in the emergency department for your right ear pain your workup here in the emergency department showed most likely acute otitis media of right ear. I have sent prescription of antibiotics to your pharmacy. Given your significant history of allergies I have sent an antibiotic course for 5 days called azithromycin. Please take as prescribed. Watch for any worsening pain swelling or pain specifically behind the right ear with worsening swelling. If you develop any of the symptoms or fevers return to the emergency department for further evaluation.
[2024-01-15] MEDS: ACETAMINOPHEN 500 MG TABLET PO STA (12:05)
[2024-01-15] MEDS: AZITHROMYCIN 250 MG TABLET PO STA (12:05)
[2024-01-15 12:08] VITALS: BP 141/92; O2SAT 100
== END 2024-01-15 12:10 | disposition home or self-care (01) ==
LOC: ED 10:12
DX: H66.91 Otitis media, unspecified, right ear (principal); K02.9 Dental caries, unspecified; I10 Essential (primary) hypertension; E11.9 Type 2 diabetes mellitus without complications; E03.9 Hypothyroidism, unspecified; F17.200 Nicotine dependence, unspecified, uncomplicated; Z79.899 Other long term (current) drug therapy; Z79.84 Long term (current) use of oral hypoglycemic drugs
CPT/HCPCS: 99283; A9270